=== PATIENT | male | born 1950 | race Caucasian/White ===

== ENCOUNTER 2019-10-19 07:22 | Outpatient (RCR) | payer MEDICARE, SELFPAY ==
--- NOTE | 2019-08-15 13:03 | WPDWOUNDNOTE ---
Wound Care Note Date/Time: 08/15/19 13:03 History: This patient is a pleasant 68-year-old white male who states that approximately over 1 month ago he was climbing up on a 3 step, step ladder and slipped as he tried to go up the 1st step. As he slipped he banged the lateral part of his right lower leg on the ladder. He is on Coumadin and his last INR which was done after this injury was 3.8. He bruised significantly on this lateral right lower leg just above the level of the ankle and subsequently began to have some unusual drainage come from the area of the injury. He went to the emergency room here at [place] around July 18 and had it evaluated. At that time his INR was 3.8 and he was told to stop his Coumadin for 1 day and then resume it at 5 mg /day. He had his INR rechecked and was 2.0 on 08/07/2019. Until treated here 2 weeks ago he had had further skin breakdown and some drainage from his right lower leg. Because he has been on Bactrim for previous cellulitis of his left lower extremity, which often swells, he has been on this as an antibiotic throughout this time period until about 2 weeks ago. 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 He does not remember specifically which side these have been on. He thinks however, they have mainly been on the left lower extremity. Wound history: The patient now has a right lower extremity wound from an infected hematoma following trauma to his right lower leg over 1 month ago. He is on anticoagulation therapy for history of DVTs. His last INR was 2.0 as mentioned above. He has now been seen in the wound clinic for this non-healing right lower extremity hematoma for the past 2 weeks after an ER visit at [facility] around July 19, 2019 when he was initially evaluated by the ED physician. He has been having dressing changes performed by his with silver gel, mepilex transfer, and overlying gauze. Last week at his appointment with Dr. Solis, they had decided to prior auth a wound VAC for possible wound VAC therapy. The patient has had no new complaints or changes from the wound since then. His feels that the wound looks better today. The swelling reportedly has decreased some and they have not reported any new drainage from the wound. The newer area of skin breadown seen on the last visit more cephalad to the large open wound, appears about the same and does not have an opening to the tunneling on my assessment. This still appears to be a full skin thickness loss at this site. Previous culture was taken and had showed growth of staph aureus resistant to Bactrim, tetracyclines, levaquin, and Cipro, with sensitivity only to vancomycin and clindamycin. No further antibiotics have been prescribed after cultures resulted due to no signs of infection on the previous assessment. Today, still no signs of infection on my exam. No new areas of skin breakdown. Wound approximation: No Wound width: Large wound: 3.4 cm Smaller wound more cephalad: 1.3 cm Wound length: Large wound: 6 cm Smaller wound more cephalad: 0.7 cm Wound depth: Large wound: 1.0 cm Smaller wound more cephalad: 0.2 cm Drainage: Some serosanguineous drainage. No purulent drainage noted and no expressible blood clots as there was on his last assessment. Surrounding tissue appearance: Healthy with shiny pink thin skin. No significant erythema and the swelling overall seems improved. Tunnelin.2 cm in the cephalad direction at 12 o'clock and another small area of tunneling 1.2 cm tunneling distally towards the foot at 6 o'clock. Percentage granulation tissue: 80% Treatment/Procedures: The wound was cleansed thoroughly and assessed. After his last evaluation last week, the wound care nurses worked on getting approval for a Wound VAC if felt appropriate
--- NOTE | 2019-08-18 17:14 | WPDWOUNDNOTE ---
Wound Care Note Date/Time: 08/18/19 17:14 (Late entry for a noon visit) History: [facility] [address] [place] [address] Wound Care Progress Note Signed Patient: Albin Nolan WMR#: [id number] : 3Acct:[id number] Age/Sex: 68 / MADM Date: 08/15/19 [facility]: Walt Solis MD cc: ~ Wound Care Note Date/Time: 08/15/19 13:03 History: This patient is a pleasant 68-year-old white male who states that approximately over 1 month ago he was climbing up on a 3 rung, step ladder and slipped as he tried to go up the 1st step. As he slipped he banged the lateral part of his right lower leg on the ladder. He is on Coumadin and his last INR which was done after this injury was 3.8. He bruised significantly on this lateral right lower leg just above the level of the ankle and subsequently began to have some unusual drainage come from the area of the injury. He went to the emergency room here at [place] around July 18 and had it evaluated. At that time his INR was 3.8 and he was told to stop his Coumadin for 1 day and then resume it at 5 mg /day. He had his INR rechecked and was 2.0 on 08/07/2019. Until treated here 2 weeks ago he had had further skin breakdown and some drainage from his right lower leg. Because he has been on Bactrim for previous cellulitis of his left lower extremity, which often swells, he has been on this as an antibiotic throughout this time period until about 2 weeks ago. 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 He does not remember specifically which side these have been on. He thinks however, they have mainly been on the left lower extremity. Wound history: The patient now has a right lower extremity wound from an infected hematoma following trauma to his right lower leg over 1 month ago. He is on anticoagulation therapy for history of DVTs. His last INR was 2.0 as mentioned above. He has now been seen in the wound clinic for this non-healing right lower extremity hematoma for the past 2 weeks after an ER visit at [facility] around July 19, 2019 when he was initially evaluated by the ED physician. He has been having dressing changes with use of a wound VAC since his last visit here at the clinic with an MD or an RN-N P The patient has had no new complaints or changes from the wound since then. back is not cause a lot of pain and they are able to pull 1 of his looser Napoleon hose over the system. His feels that the wound looks better today. The swelling reportedly has decreased some and they have not reported any new drainage from the wound. Not significant blood coming into the drainage. The newer smaller area of skin breadown seen two visits ago, more cephalad to the large open wound, appears about the same. This still appears to be a full skin thickness loss at this site. Previous culture was taken and had showed growth of staph aureus resistant to Bactrim, tetracyclines, levaquin, and Cipro, with sensitivity only to vancomycin and clindamycin. No further antibiotics have been prescribed after cultures resulted due to no signs of infection on the previous assessment. Today, still no signs of infection. No new areas of skin breakdown Wound approximation: No Wound width: 3.2 cm Wound length: 5.7cm Wound depth: 0.8 cm Drainage: Minimal, see nursing chart for drainage within wound VAC canister. Surrounding tissue appearance: Healthy appearing skin Tunneling: Some posterior lateral tunneling in a cephalad direction. Also, Air is some tunneling inferiorly from the small wound that is above the larger which is measured above. We are trying to pack these from each end and let it heal from center toward each wound. Treatment/Procedures: We used jesi
--- NOTE | 2019-09-05 21:36 | WPDWOUNDNOTE ---
Wound Care Note Date/Time: 08/31/19 21:36 (Late entry for 08/31/2019 noon visit) History: This patient is a pleasant 68-year-old white male who states that approximately over 2 months ago he was climbing up on a 3 step, step ladder and slipped as he tried to go up the 1st step. As he slipped he banged the lateral part of his right lower leg on the ladder. He is on Coumadin and his last INR which was done after this injury was 3.8. He bruised significantly on this lateral right lower leg just above the level of the ankle and subsequently began to have some unusual drainage come from the area of the injury. He went to the emergency room here at [place] around July 18 and had it evaluated. At that time his INR was 3.8 and he was told to stop his Coumadin for 1 day and then resume it at 5 mg /day. He had his INR rechecked and was 2.0 on 08/07/2019. Until treated here 2 weeks ago he had had further skin breakdown and some drainage from his right lower leg. Because he has been on Bactrim for previous cellulitis of his left lower extremity, which often swells, he has been on this as an antibiotic throughout this time period until about 2 weeks ago. 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 He does not remember specifically which side these have been on. He thinks however, they have mainly been on the left lower extremity Wound history: The patient now has a right lower extremity wound from an infected hematoma following trauma to his right lower leg over 1 month ago. He is on anticoagulation therapy for history of DVTs. His last INR was 2.0 as mentioned above. He has now been seen in the wound clinic for this non-healing right lower extremity hematoma for the past 2 weeks after an ER visit at [facility] around July 19, 2019 when he was initially evaluated by the ED physician. He has been having dressing changes with use of a wound VAC since his last visit here at the clinic with an MD or an RN-N P The patient has had no new complaints or changes from the wound since then. back is not cause a lot of pain and they are able to pull 1 of his looser Napoleon hose over the system. His feels that the wound looks better today. The swelling reportedly has decreased some and they have not reported any new drainage from the wound. Not significant blood coming into the drainage. The newer smaller area of skin breadown seen two visits ago, more cephalad to the large open wound, appears about the same. This still appears to be a full skin thickness loss at this site. Previous culture was taken and had showed growth of staph aureus resistant to Bactrim, tetracyclines, levaquin, and Cipro, with sensitivity only to vancomycin and clindamycin. No further antibiotics have been prescribed after cultures resulted due to no signs of infection on the previous assessment. Today, still no signs of infection. No new areas of skin breakdown Wound approximation: No Wound width: 2.4 cm Wound length: 5.4 cm Wound depth: 0.4 cm Drainage: serosanguineous without any purulence Surrounding tissue appearance: normal appearing skin. There is signs of re-epithelialization on the edges of the wound. Tunneling: Some tunneling of the posterior superior and the large wound which tunnels toward the smaller wound on the lateral side his leg. There is also a small amount of tunneling from small wound deep. After wound VAC therapy these appear to be sealing in.. Percentage granulation tissue: 95 % Treatment/Procedures: Stop wound VAC changes and wound VAC therapy. Wound is pallavi and granulation tissue is filling in the spaces. Will now begin using silver rope some silver gel a Primix dressing Dressings: See nursing notes: wound VAC will be put on hold and we will try new d
--- NOTE | 2019-09-13 13:19 | WPDWOUNDNOTE ---
Wound Care Note Date/Time: 09/13/19 13:19 History: This patient is a pleasant 68-year-old white male who states that approximately over 2 months ago he was climbing up on a 3 step, step ladder and slipped as he tried to go up the 1st step. As he slipped he banged the lateral part of his right lower leg on the ladder. He is on Coumadin and his last INR which was done after this injury was 3.8. He bruised significantly on this lateral right lower leg just above the level of the ankle and subsequently began to have some unusual drainage come from the area of the injury. He went to the emergency room here at [place] around July 18 and had it evaluated. At that time his INR was 3.8 and he was told to stop his Coumadin for 1 day and then resume it at 5 mg /day. He had his INR rechecked and it was 2.0 on 08/07/2019. Until treated here 4 weeks ago he had had further skin breakdown and some drainage from his right lower leg. Because he has been on Bactrim for previous cellulitis of his left lower extremity, which often swells, he has been on this as an antibiotic throughout this time period until about 2 weeks ago. 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 upper extremity. He does not remember specifically which side these have been on. He thinks however, they have mainly been on the left lower extremity Wound history: Wound history: The patient now has a right lower extremity wound from an infected hematoma following trauma to his right lower leg over 1 month ago. He is on anticoagulation therapy for history of DVTs. His last INR was 2.0 as mentioned above. He has now been seen in the wound clinic for this non-healing right lower extremity hematoma for the past 2 weeks after an ER visit at [facility] around July 19, 2019 when he was initially evaluated by the ED physician. He has been having dressing changes with use of a wound VAC since his last visit here at the clinic with an MD or an RN-N P. The patient has had no new complaints or changes from the wound since then. The wound vac is not causing a lot of pain and they are able to pull 1 of his looser Napoleon hose over the system. His feels that the wound looks better today. The swelling reportedly has decreased some and they have not reported any new drainage from the wound. No significant blood coming into the drainage. The newer smaller area of skin breadown seen two visits ago, more cephalad to the large open wound, appears about the same. This still appears to be a full skin thickness loss at this site. Previous culture was taken and had showed growth of staph aureus resistant to Bactrim, tetracyclines, levaquin, and Cipro, with sensitivity only to vancomycin and clindamycin. No further antibiotics have been prescribed after cultures resulted due to no signs of infection on the previous assessment. Today, still no signs of infection. No new areas of skin breakdown Wound approximation: No (Upper wound is flat with the skin. Lower larger is tunneling slightly ceph) Wound width: 1.5cm Wound length: 4 cm Wound depth: 0.3cm Drainage: Serosanguineous, minimal Surrounding tissue appearance: Shinny clean epidermis surrounding both open sites. Tunneling: Yes : The lower larger wound tunnel somewhat cephalad for about 2 cm. Silver nitrate used within this tunnel and along some of the edge of the wound. Percentage granulation tissue: 100% Treatment/Procedures: Will plan to use Judi within the tunnel of the lower wound and also on the depths of the lower wound. Covering it with Mepilex and patient wearing his compression hose over this. Changing the dressing once a day. Dressings: Judi, Mepilex, compression hose over all the dressings.
--- NOTE | 2019-09-27 20:29 | WPDWOUNDNOTE ---
Wound Care Note Date/Time: 09/27/19 11:29 Pt seen in the [place] wound clinic. History: This patient is a pleasant 68-year-old white male who states that approximately over 4 months ago he was climbing up on a 3 step, step ladder and slipped as he tried to go up the 1st step. As he slipped he banged the lateral part of his right lower leg on the ladder. He is on Coumadin and his last INR which was done after this injury was 3.8. He bruised significantly on this lateral right lower leg just above the level of the ankle and subsequently began to have some unusual drainage come from the area of the injury. He went to the emergency room here at [place] around July 18 and had it evaluated. At that time his INR was 3.8 and he was told to stop his Coumadin for 1 day and then resume it at 5 mg /day. He had his INR rechecked and it was 2.8 on 08/07/2019. Until treated here 6 weeks ago he had had further skin breakdown and some drainage from his right lower leg. Because he has been on Bactrim for previous cellulitis of his left lower extremity, which often swells, he has been on this as an antibiotic throughout this time period until about 4 weeks ago. 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 upper extremity. He does not remember specifically which side these have been on. He thinks however, they have mainly been on the left lower extremi Wound history: This patient is a pleasant 68-year-old white male who states that approximately over 4 months ago he was climbing up on a 3 step, step ladder and slipped as he tried to go up the 1st step. As he slipped he banged the lateral part of his right lower leg on the ladder. He is on Coumadin and his last INR which was done after this injury was 3.8. He bruised significantly on this lateral right lower leg just above the level of the ankle and subsequently began to have some unusual drainage come from the area of the injury. He went to the emergency room here at [place] around July 18 and had it evaluated. At that time his INR was 3.8 and he was told to stop his Coumadin for 1 day and then resume it at 5 mg /day. He had his INR rechecked and it was 2.0 on 08/07/2019. Most recently this was down to 1.6 and his dose of coumadin has been increased by Dr. Singh. Until treated here 6 weeks ago he had had further skin breakdown and some drainage from his right lower leg. Because he has been on Bactrim for previous cellulitis of his left lower extremity, which often swells, he has been on this as an antibiotic throughout this time period until about 4 weeks ago. 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 upper extremity. He does not remember specifically which side these have been on. He thinks however, they have mainly been on the left lower extremity. His wound has been healing in nicely and re-epithelializing on the edges. There has been no signs of infection. Wound approximation: No Wound width: 1 cm Wound length: 3 cm Wound depth: 0.2 cm Drainage: minimal Surrounding tissue appearance: healthy skin that is pink. The small satillite lesion is also granulating in slowly and is smaller. Tunneling: only 0.5 to 0.2 cm in a cephalad direction on both wounds Percentage granulation tissue: 100 % Treatment/Procedures: Continue Judi and cover with a Mipilex or kerlix roll Dressings: as above Wearing his compression stockings Assessment and Plan Assessment and plan (1) Traumatic hematoma of right lower leg: Onset Date: ~07/2019 Qualifiers: Encounter type: subsequ
--- NOTE | 2019-10-19 12:25 | WPDWOUNDNOTE ---
Wound Care Note Date/Time: 10/19/19 12:25 History: This patient is a pleasant 68-year-old white male who states that approximately over 4 months ago he was climbing up on a 3 step, step ladder and slipped as he tried to go up the 1st step. As he slipped he banged the lateral part of his right lower leg on the ladder. He is on Coumadin and his last INR which was done after this injury was 3.8. He bruised significantly on this lateral right lower leg just above the level of the ankle and subsequently began to have some unusual drainage come from the area of the injury. He went to the emergency room here at [place] around July 18 and had it evaluated. At that time his INR was 3.8 and he was told to stop his Coumadin for 1 day and then resume it at 5 mg /day. He had his INR rechecked and it was 2.8 on 08/07/2019. Until treated here 10 weeks ago he had had further skin breakdown and some drainage from his right lower leg. Because he has been on Bactrim for previous cellulitis of his left lower extremity, which often swells, he has been on this as an antibiotic throughout this time period until about 8 weeks ago. 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 upper extremity. He does not remember specifically which side these have been on. He thinks however, they have mainly been on the left lower extremity. Wound history: This patient is a pleasant 68-year-old white male who states that approximately over 4 months ago he was climbing up on a 3 step, step ladder and slipped as he tried to go up the 1st step. As he slipped he banged the lateral part of his right lower leg on the ladder. He is on Coumadin and his last INR which was done after this injury was 3.8. He bruised significantly on this lateral right lower leg just above the level of the ankle and subsequently began to have some unusual drainage come from the area of the injury. He went to the emergency room here at [place] around July 18 and had it evaluated. At that time his INR was 3.8 and he was told to stop his Coumadin for 1 day and then resume it at 5 mg /day. He had his INR rechecked and it was 2.0 on 08/07/2019. Most recently this was down to 1.6 and his dose of coumadin has been increased by Dr. Singh. Until treated here 10 weeks ago he had had further skin breakdown and some drainage from his right lower leg. Because he has been on Bactrim for previous cellulitis of his left lower extremity, which often swells, he has been on this as an antibiotic throughout this time period until about 8weeks ago. 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 upper extremity. He does not remember specifically which side these have been on. He thinks however, they have mainly been on the left lower extremity. patient has been treated initially with wound VAC therapy and then careful wound care with Mepilex transfer and coverage with gauze. He has some weeping today because he has not been wearing his Napoleon hose over the dressings. Otherwise his wound has been healing in nicely and re-epithelializing on the edges. Wound width: Patient has 3 small very superficial less than 0.5 cm breakdown sites that we put clear fluid in the general vicinity of where his wound was. It is otherwise completely healed. Wound length: Patient has 3 small very superficial less than 0.5 cm breakdown sites that we put clear fluid in the general vicinity of where his wound was. It is otherwise completely healed. Wound depth: 0 mm Drainage: Minimal serous fluid Surrounding tissue appearance: the site w
== END 2019-11-10 12:29 | disposition home or self-care (01) ==
LOC: ANHWOC 07:22
PROVIDERS: PCP Internal Medicine; Visit Provider Surgery
DX: S81.801D Unspecified open wound, right lower leg, subsequent encounter (principal); Z79.01 Long term (current) use of anticoagulants
CPT/HCPCS: 92593; 97605; 99212; 99214; A9270; G0463

== ENCOUNTER 2019-11-20 11:30 | Outpatient (RCR) | payer MEDICARE, SELFPAY ==
[2019-09-04 13:43] LABS: INR 1.6; Prothrombin Time 18.5 Seconds (11.1-14.7)
[2019-09-22 12:13] LABS: INR 1.7; Prothrombin Time 19.1 Seconds (11.1-14.7)
[2019-10-13 14:27] LABS: INR 2.2; Prothrombin Time 23.9 Seconds (11.1-14.7)
[2019-11-20 13:18] LABS: Hematocrit 43.3 % (42.0-52.0); Mean Corpuscular HGB Conc 32.3 g/dl (32-36); Mean Corpuscular Hemoglobin 27.9 pg (26-34); Mean Corpuscular Volume 86.3 fl (80-100); Mean Platelet Volume 9.7 fl (7.4-10.4); Platelet Count Result 285 k/mm3 (150-375); Red Blood Count 5.02 M/mm3 (4.6-6.20); Red Cell Distribution Width 13.5 % (11.5-14.5); White Blood Count 6.9 K/mm3 (4.5-10.0)
[2019-11-20 13:37] LABS: Alanine Aminotransferase 18 U/L (4-50); Albumin Level 4.3 g/dL (3.5-5.1); Alkaline Phosphatase 65 U/L (38-126); Aspartate Amino Transferase 25 U/L (17-59); Bilirubin,Total 0.4 mg/dL (0.2-1.3); Blood Urea Nitrogen 22 mg/dL (9-20); Calcium 9.4 mg/dL (8.4-10.2); Carbon Dioxide 28 mmol/L (22-30); Chloride 97 mmol/L (98-107); Cholesterol 130 mg/dL (0-200); Estimated Glomerular Filt Rate 55; Glucose 95 mg/dL (75-110); HDL Direct 34 mg/dL; Potassium 3.4 mmol/L (3.4-5.0); Sodium 140 mmol/L (137-145); Triglycerides 172 mg/dL (<150); Uric Acid 4.4 mg/dL (3.5-8.5)
[2019-11-20 13:38] LABS: INR 2.9; Prothrombin Time 29.4 Seconds (11.1-14.7)
[2019-11-20 13:48] LABS: LDL Cholesterol Direct 74 mg/dL
[2019-11-20 14:02] LABS: Prostate Specific Antigen 1.2 ng/mL (< OR = 4.0)
== END 2019-12-03 23:59 | disposition home or self-care (01) ==
LOC: ANHWCLAB 11:30
PROVIDERS: PCP Internal Medicine; Visit Provider Internal Medicine
DX: Z51.81 Encounter for therapeutic drug level monitoring (principal); D64.9 Anemia, unspecified; I10 Essential (primary) hypertension; E78.2 Mixed hyperlipidemia; M10.9 Gout, unspecified; Z12.5 Encounter for screening for malignant neoplasm of prostate; Z79.899 Other long term (current) drug therapy; Z79.01 Long term (current) use of anticoagulants
CPT/HCPCS: 36415; 80053; 80061; 84153; 84550; 85027; 85610; G0103

== ENCOUNTER 2020-04-24 08:07 | Outpatient (CLI) | payer MEDICARE, SELFPAY ==
[2020-04-24 08:47] LABS: INR 3.4; Prothrombin Time 33.5 Seconds (11.1-14.7)
== END 2020-04-24 08:08 | disposition home or self-care (01) ==
PROVIDERS: Visit Provider Dentist
DX: Z79.01 Long term (current) use of anticoagulants (principal)
CPT/HCPCS: 36415; 85610

== ENCOUNTER 2020-05-20 07:43 | Outpatient (CLI) | payer MEDICARE, SELFPAY ==
[2020-05-20 08:09] LABS: Hematocrit 36.8 % (42.0-52.0); Hemoglobin 12.3 g/dL (14.0-18.0)
[2020-05-20 08:23] LABS: Alanine Aminotransferase 14 U/L (4-50); Albumin Level 4.1 g/dL (3.5-5.1); Alkaline Phosphatase 55 U/L (38-126); Anion Gap 8 mmol/L (8-16); Aspartate Amino Transferase 25 U/L (17-59); Bilirubin,Total 0.3 mg/dL (0.2-1.3); Blood Urea Nitrogen 22 mg/dL (9-20); Calcium 8.6 mg/dL (8.4-10.2); Carbon Dioxide 26 mmol/L (22-30); Chloride 103 mmol/L (98-107); Cholesterol 119 mg/dL (0-200); Estimated Glomerular Filt Rate 43; Glucose 109 mg/dL (75-110); HDL Direct 27 mg/dL; Potassium 3.8 mmol/L (3.4-5.0); Sodium 137 mmol/L (137-145); Triglycerides 137 mg/dL (<150)
[2020-05-20 08:34] LABS: LDL Cholesterol Direct 66 mg/dL
[2020-05-20 08:57] LABS: Iron 71 ug/dL (49-181)
[2020-05-20 09:06] LABS: Percent Iron Saturation 22 % (20-50)
== END 2020-05-20 07:44 | disposition home or self-care (01) ==
LOC: ANHLAB 07:45
PROVIDERS: Visit Provider Internal Medicine
DX: E78.5 Hyperlipidemia, unspecified (principal); I10 Essential (primary) hypertension; Z79.899 Other long term (current) drug therapy; D64.9 Anemia, unspecified
CPT/HCPCS: 36415; 80053; 80061; 83540; 83550; 85014; 85018

== ENCOUNTER 2020-05-30 09:49 | Outpatient (CLI) | payer MEDICARE, SELFPAY ==
--- NOTE | ~2020-05-30 | CT_ITS ---
EXAMINATION: CT sinus wo con DATE: 05/30/2020 10:08 INDICATION: Chronic sinusitis, unspecified TECHNIQUE: Computed tomography (CT) of the paranasal sinuses was performed without intravenous contra st. The dose-length product (DLP) was 273.54 mGy-cm. Iterative reconstruction was used. COMPARISON: 01/02/2015 FINDINGS: There is normal development and pneumatization of the paranasal sinuses. There is mild muco chey thickening of the frontal sinuses and inferiorly in the maxillary sinuses. Sphenoid and ethmoidal sinuses are clear. There are 5 mm of rightward deviation of the nasal septum. The bilateral ostiomea cherie complexes are patent. Visualized soft tissues are unremarkable. IMPRESSION: 1. Minimal mucosal thickening of the frontal and maxillary sinuses. Reviewed, dictated and finalized at location A.
== END 2020-05-30 09:50 | disposition home or self-care (01) ==
PROVIDERS: Visit Provider Nurse Practitioner
DX: J32.9 Chronic sinusitis, unspecified (principal); R53.83 Other fatigue
CPT/HCPCS: 36415; 70486; 84443; 85610

== ENCOUNTER 2020-07-09 08:12 | Outpatient (CLI) | payer MEDICARE, SELFPAY ==
--- NOTE | 2020-07-24 22:11 | WPDHOMESLEEP ---
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 He occasionally snores and occasionally it is loud enough that others complain about it. He rarely awakens at night with heartburn belching or coughing. He rarely awakens from sleep feeling short of breath. He frequently has trouble sleep with the coal, occasionally wakes up gasping for breath at night, occasionally his breathing problems at night observed by others. He rarely sweats excessively at night and rarely notices his heart pounding or beating irregularly at night. He occasionally falls asleep during the day rarely involuntarily never while driving or during physical effort. He does not have loss of muscle tone was strong emotion. He rarely has daytime difficulties due to excessive sleepiness. He is currently retired. He does not feel paralyzed on waking or falling asleep and does not have vivid dreamlike scenes upon awakening or falling asleep. He is not afraid to go to sleep. He rarely has nightmares, rarely remembers his dreams. He occasionally has racing thoughts. He rarely feels sad or depressed. He occasionally has anxiety. He rarely has muscular tension, rarely notices parts of his body jerking any rarely kicks at night. He occasionally has crawling and aching feelings in his legs and occasionally has leg pain at night. He does not have morning jaw pain. He occasionally grinds his teeth during sleep. He frequently is bothered by pain during the day. He occasionally is awakened by pain during the night. Frequently wakes up feeling stiff in the morning with sore achy muscles and pain in the neck and spine. He has fatigue, memory problems, and he takes sedatives. Normal bedtime is 11:00 p.m. falling asleep within 30 minutes rule in back and forth during the night. He may wake up early in the morning before his desired wake time of 5:00 a.m.. We can schedule is the same although he may go to bed 1 hour later. He does take naps. Short naps are not refreshing. He feels better in the afternoon and in the morning. [facility], [facility] Past Medical History Medical History (Updated 07/24/20 @ 22:25 by Karyna Brumfield MD) Anemia Chronic sinusitis Essential (primary) hypertension Fatigue Gastroesophageal reflux disease Gout without tophus History of DVT of lower extremity Mixed hyperlipidemia Obstructive sleep apnea (~2002) CASIMIRO on CPAP Primary insomnia Primary osteoarthritis of left knee Family History Family History Sibling Family history of diabetes mellitus in first degree relative Mother Asthma Family history of diabetes mellitus in first degree relative Father Malignant neoplasm of prostate Other Diabetes mellitus Family history of arthritis Family history of malignant neoplasm Hypertension Social History Social History Smoking status: Former smoker Smoking end date: 10/11/07 Alcohol intake: current Medications Afrin nasal decongestant p.r.n. Atorvastatin 20 mg a day aspirin 81 mg B12 1000 mcg once daily ferrous sulfate 325 mg 1 tablet b.i.d. Flonase Allergy Relief as needed fish oil a 1000 mg twice folic acid 800 mcg once daily furosemide 80 mg a day multivitamin 1 daily potassium chloride 1 daily pantoprazole 40 mg a day trazodone 150 mg 2 at bedtime topiramate 25 mg once a day Uloric 40 mg daily vitamin-C 500 mg daily vitamin D supplement 400 IU daily Sleep Procedure This test was performed using 4 channel monitoring includin
[2020-07-24 22:28] VITALS: BMI 38.0
== END 2020-07-09 08:13 | disposition home or self-care (01) ==
LOC: ANHCSM 08:12
PROVIDERS: Visit Provider Nurse Practitioner
DX: F51.01 Primary insomnia (principal)
CPT/HCPCS: 95806

== ENCOUNTER 2020-07-16 08:19 | Outpatient (RCR) | payer MEDICARE, SELFPAY ==
[2020-05-30 11:07] LABS: INR 2.4; Prothrombin Time 25.9 Seconds (11.1-14.7)
[2020-07-16 08:51] LABS: Prothrombin Time 22.6 Seconds (11.1-14.7)
== END 2020-08-28 23:59 | disposition home or self-care (01) ==
LOC: ANHLAB 08:19
PROVIDERS: Visit Provider Internal Medicine
DX: Z51.81 Encounter for therapeutic drug level monitoring (principal); Z79.01 Long term (current) use of anticoagulants
CPT/HCPCS: 36415; 85610

== ENCOUNTER 2020-11-21 10:28 | Outpatient (RCR) | payer MEDICARE, SELFPAY ==
[2020-09-26 12:27] LABS: INR 2.4; Prothrombin Time 27.1 Seconds (11.1-14.7)
[2020-11-21 11:21] LABS: INR 2.9; Prothrombin Time 30.9 Seconds (11.1-14.7)
== END 2020-12-25 23:59 | disposition home or self-care (01) ==
LOC: ANHLAB 10:28
PROVIDERS: PCP Internal Medicine; Visit Provider Internal Medicine
DX: Z51.81 Encounter for therapeutic drug level monitoring (principal); Z79.01 Long term (current) use of anticoagulants
CPT/HCPCS: 36415; 85610

== ENCOUNTER 2020-11-21 10:31 | Outpatient (CLI) | payer MEDICARE, SELFPAY ==
[2020-11-21 11:12] LABS: Basophils Percent Auto 0.4 % (0.2-1.2); Eosinophils Absolute Auto 0.1 K/mm3 (0-0.3); Eosinophils Percent Auto 2.1 % (0-4.4); Hematocrit 39.7 % (42.0-52.0); Hemoglobin 13.2 g/dL (14.0-18.0); Immature Granulocyte Absolute 0.02 K/mm3 (0.00-0.031); Immature Granulocyte Percent A 0.3 % (0-0.5); Lymphocytes Absolute Auto 1.57 K/mm3 (0.9-3.2); Lymphocytes Percent Auto 23.4 % (18.3-44.2); Mean Corpuscular HGB Conc 33.2 g/dl (32-36); Mean Corpuscular Hemoglobin 29.9 pg (26-34); Mean Corpuscular Volume 89.8 fl (80-100); Mean Platelet Volume 9.6 fl (7.4-10.4); Monocytes Absolute Auto 0.5 K/mm3 (0.1-0.6); Monocytes Percent Auto 7.3 % (2.6-8.5); Neutrophils Absolute Auto 4.5 K/mm3 (1.3-6.7); Neutrophils Percent Auto 66.5 % (45.5-73.1); Platelet Count Result 260 k/mm3 (150-375); Red Blood Count 4.42 M/mm3 (4.6-6.20); Red Cell Distribution Width 13.3 % (11.5-14.5); White Blood Count 6.7 K/mm3 (4.5-10.0)
[2020-11-21 11:25] LABS: Alanine Aminotransferase 22 U/L (4-50); Albumin Level 4.5 g/dL (3.5-5.1); Alkaline Phosphatase 49 U/L (38-126); Anion Gap 7 mmol/L (8-16); Aspartate Amino Transferase 33 U/L (17-59); Bilirubin,Total 0.5 mg/dL (0.2-1.3); Blood Urea Nitrogen 19 mg/dL (9-20); Calcium 9.1 mg/dL (8.4-10.2); Carbon Dioxide 31 mmol/L (22-30); Chloride 102 mmol/L (98-107); Cholesterol 146 mg/dL (0-200); Estimated Glomerular Filt Rate 43; Glucose 109 mg/dL (75-110); HDL Direct 34 mg/dL; Potassium 3.4 mmol/L (3.4-5.0); Sodium 140 mmol/L (137-145); Triglycerides 161 mg/dL (<150); Uric Acid 5.1 mg/dL (3.5-8.5)
[2020-11-21 11:36] LABS: LDL Cholesterol Direct 80 mg/dL
[2020-11-21 11:55] LABS: Prostate Specific Antigen 2.2 ng/mL (< OR = 4.0)
[2020-11-21 12:08] LABS: Iron 102 ug/dL (49-181)
[2020-11-21 12:18] LABS: Percent Iron Saturation 29 % (20-50)
== END 2020-11-21 10:32 | disposition home or self-care (01) ==
LOC: ANHLAB 10:33
PROVIDERS: PCP Internal Medicine; Visit Provider Nurse Practitioner
DX: M10.9 Gout, unspecified (principal); D64.9 Anemia, unspecified; E53.8 Deficiency of other specified B group vitamins; E78.2 Mixed hyperlipidemia; Z12.5 Encounter for screening for malignant neoplasm of prostate
CPT/HCPCS: 36415; 80053; 80061; 82607; 83540; 83550; 84153; 84550; 85025; G0103

== ENCOUNTER 2021-03-07 09:25 | Outpatient (RCR) | payer MEDICARE, SELFPAY ==
[2021-01-07 10:13] LABS: INR 2.9
[2021-03-07 10:00] LABS: Prothrombin Time 31.3 Seconds (11.1-14.7)
== END 2021-04-07 23:59 | disposition home or self-care (01) ==
LOC: ANHLAB 09:25
PROVIDERS: PCP Internal Medicine; Visit Provider Nurse Practitioner
DX: Z51.81 Encounter for therapeutic drug level monitoring (principal); I82.409 Acute embolism and thrombosis of unspecified deep veins of unspecified lower extremity; Z79.01 Long term (current) use of anticoagulants
CPT/HCPCS: 36415; 85610

== ENCOUNTER 2021-04-10 14:26 | Outpatient (CLI) | payer MEDICARE, SELFPAY ==
--- NOTE | ~2021-04-10 | CT_ITS ---
EXAMINATION: CT lung screening EXAM DATE: 04/10/2021 15:17 INDICATION: Z87.891 - Personal history of nicotine dependence. Shortness of breath. TECHNIQUE: Spiral low dose CT of the chest without contrast. Axial, coronal and sagittal images were reviewed. The dose-length product (DLP) for this examination was 513.77 mGy-cm. The exposure was t ailored according to patient size (auto mA exposure control), and iterative reconstruction (ASIR) was used as additional dose reduction technique. Comparison is made to prior examination from 01/30/2010. Correlation was made with abdomen pelvis CT 01/15/2017. FINDINGS: Calcified right lower lobe granuloma. The lungs are otherwise clear. Tracheobronchial tr ee is patent. There is no mediastinal, hilar or axillary lymphadenopathy. There are no pleural or pericardial effusions. There is no pneumothorax. Heart normal in size. No evidence of coronary arterial calcification. Small right renal lesions are probably cysts, hemorrhagic cysts correlating with prior CT abdomen. Probable 5 mm left superior calyceal stone. Mild scattered colonic diverticulo sis. There is mild to moderate thoracic spondylosis without osteoblastic or osteolytic lesions ident ified. IMPRESSION: Lung-RADS category 1, negative (<1%chance of malignancy); recommend continued LDCT screen ing in 1 year. > Reviewed, dictated and finalized at location A. IMPRESSION: Lung-RADS category 1, negative (<1%chance of malignancy); recommend continued LDCT screening in 1 year. >
== END 2021-04-10 14:27 | disposition home or self-care (01) ==
PROVIDERS: PCP Internal Medicine; Visit Provider Nurse Practitioner Family
DX: Z12.2 Encounter for screening for malignant neoplasm of respiratory organs (principal); Z87.891 Personal history of nicotine dependence
CPT/HCPCS: 36415; 71271; 85610

== ENCOUNTER 2021-05-28 07:58 | Outpatient (RCR) | payer MEDICARE, SELFPAY ==
[2021-04-10 15:33] LABS: INR 2.3; Prothrombin Time 24.8 Seconds (11.1-14.7)
[2021-05-28 09:08] LABS: INR 2.6; Prothrombin Time 27.2 Seconds (11.1-14.7)
== END 2021-07-09 23:59 | disposition home or self-care (01) ==
LOC: ANHLAB 07:58
PROVIDERS: PCP Internal Medicine; Visit Provider Nurse Practitioner
DX: Z51.81 Encounter for therapeutic drug level monitoring (principal); I82.409 Acute embolism and thrombosis of unspecified deep veins of unspecified lower extremity; Z79.01 Long term (current) use of anticoagulants
CPT/HCPCS: 36415; 85610

== ENCOUNTER 2021-05-28 08:00 | Outpatient (CLI) | payer MEDICARE, SELFPAY ==
[2021-05-28 09:09] LABS: Alanine Aminotransferase 18 U/L (4-50); Albumin Level 4.3 g/dL (3.5-5.1); Alkaline Phosphatase 52 U/L (38-126); Anion Gap 8 mmol/L (8-16); Aspartate Amino Transferase 27 U/L (17-59); Bilirubin,Total 0.5 mg/dL (0.2-1.3); Blood Urea Nitrogen 18 mg/dL (9-20); Calcium 9.3 mg/dL (8.4-10.2); Carbon Dioxide 26 mmol/L (22-30); Chloride 106 mmol/L (98-107); Cholesterol 140 mg/dL (0-200); Estimated Glomerular Filt Rate 43; Glucose 99 mg/dL (65-110); HDL Direct 35 mg/dL; Potassium 3.6 mmol/L (3.4-5.0); Sodium 140 mmol/L (137-145); Triglycerides 98 mg/dL (<150)
[2021-05-28 09:20] LABS: LDL Cholesterol Direct 67 mg/dL
== END 2021-05-28 08:01 | disposition home or self-care (01) ==
PROVIDERS: PCP Internal Medicine; Visit Provider Nurse Practitioner
DX: E78.5 Hyperlipidemia, unspecified (principal)
CPT/HCPCS: 36415; 80053; 80061; 85610

== ENCOUNTER 2021-06-02 08:36 | Outpatient (CLI) | payer MEDICARE, SELFPAY ==
[2021-06-02 09:26] LABS: Basophils Absolute Auto 0.1 K/mm3 (0.0-0.1); Basophils Percent Auto 0.7 % (0.2-1.2); Eosinophils Absolute Auto 0.2 K/mm3 (0-0.3); Eosinophils Percent Auto 2.9 % (0-4.4); Hematocrit 39.8 % (42.0-52.0); Hemoglobin 12.8 g/dL (14.0-18.0); Immature Granulocyte Absolute 0.01 K/mm3 (0.00-0.031); Immature Granulocyte Percent A 0.1 % (0-0.5); Lymphocytes Percent Auto 22.9 % (18.3-44.2); Mean Corpuscular HGB Conc 32.2 g/dl (32-36); Mean Corpuscular Hemoglobin 29.5 pg (26-34); Mean Corpuscular Volume 91.7 fl (80-100); Mean Platelet Volume 9.9 fl (7.4-10.4); Monocytes Absolute Auto 0.5 K/mm3 (0.1-0.6); Monocytes Percent Auto 6.7 % (2.6-8.5); Neutrophils Absolute Auto 4.7 K/mm3 (1.3-6.7); Neutrophils Percent Auto 66.7 % (45.5-73.1); Platelet Count Result 233 k/mm3 (150-375); Red Blood Count 4.34 M/mm3 (4.6-6.20); Red Cell Distribution Width 13.3 % (11.5-14.5)
[2021-06-02 10:14] LABS: Iron 47 ug/dL (49-181)
[2021-06-02 10:23] LABS: Percent Iron Saturation 14 % (20-50)
[2021-06-06 11:01] LABS: Testosterone Total 287 ng/dL (250-1100)
== END 2021-06-02 08:37 | disposition home or self-care (01) ==
PROVIDERS: PCP Internal Medicine; Visit Provider Internal Medicine
DX: R53.83 Other fatigue (principal); D64.9 Anemia, unspecified
CPT/HCPCS: 36415; 83540; 83550; 84403; 84443; 85025

== ENCOUNTER 2021-10-02 08:44 | Outpatient (RCR) | payer MEDICARE, SELFPAY ==
[2021-07-21 09:39] LABS: INR 1.7; Prothrombin Time 19.2 Seconds (11.1-14.7)
[2021-10-02 09:19] LABS: INR 2.6; Prothrombin Time 27.4 Seconds (11.1-14.7)
== END 2021-10-19 23:59 | disposition home or self-care (01) ==
LOC: ANHLAB 08:44
PROVIDERS: PCP Internal Medicine; Referring Provider Dentist; Visit Provider Nurse Practitioner
DX: Z51.81 Encounter for therapeutic drug level monitoring (principal); I82.409 Acute embolism and thrombosis of unspecified deep veins of unspecified lower extremity; Z79.01 Long term (current) use of anticoagulants
CPT/HCPCS: 36415; 85610

== ENCOUNTER 2021-12-02 09:01 | Outpatient (CLI) | payer MEDICARE, SELFPAY ==
[2021-12-02 09:36] LABS: INR 2.1
[2021-12-02 09:38] LABS: Alanine Aminotransferase 16 U/L (4-50); Albumin Level 4.1 g/dL (3.5-5.1); Alkaline Phosphatase 48 U/L (38-126); Anion Gap 7 mmol/L (8-16); Aspartate Amino Transferase 33 U/L (17-59); Bilirubin,Total 0.5 mg/dL (0.2-1.3); Blood Urea Nitrogen 20 mg/dL (9-20); Calcium 9.3 mg/dL (8.4-10.2); Carbon Dioxide 26 mmol/L (22-30); Chloride 107 mmol/L (98-107); Cholesterol 130 mg/dL (0-200); Estimated Glomerular Filt Rate 46; Glucose 102 mg/dL (65-110); HDL Direct 28 mg/dL; Potassium 4.4 mmol/L (3.4-5.0); Sodium 140 mmol/L (137-145); Triglycerides 127 mg/dL (<150); Uric Acid 4.9 mg/dL (3.5-8.5)
[2021-12-02 09:49] LABS: LDL Cholesterol Direct 72 mg/dL
[2021-12-02 10:07] LABS: Prostate Specific Antigen 0.8 ng/mL (< OR = 4.0)
== END 2021-12-02 09:02 | disposition home or self-care (01) ==
LOC: ANHLAB 09:03
PROVIDERS: PCP Internal Medicine; Visit Provider Internal Medicine
DX: I10 Essential (primary) hypertension (principal); Z79.899 Other long term (current) drug therapy; M10.9 Gout, unspecified; Z12.5 Encounter for screening for malignant neoplasm of prostate; E78.5 Hyperlipidemia, unspecified
CPT/HCPCS: 36415; 80053; 80061; 84153; 84550; 85610; G0103

== ENCOUNTER 2021-12-02 09:07 | Outpatient (RCR) | payer MEDICARE, SELFPAY | END 2022-03-02 23:59 | disposition home or self-care (01) | LOC: ANHLAB 09:07 | PROVIDERS: PCP Internal Medicine; Visit Provider Internal Medicine | DX: Z51.81 Encounter for therapeutic drug level monitoring (principal); Z79.01 Long term (current) use of anticoagulants | CPT/HCPCS: 99199 ==

== ENCOUNTER 2021-12-10 08:30 | Outpatient (CLI) | payer MEDICARE, SELFPAY ==
[2021-12-10 09:23] LABS: Iron 90 ug/dL (49-181)
[2021-12-10 09:32] LABS: Percent Iron Saturation 28 % (20-50)
[2021-12-14 10:27] LABS: Testosterone Total 581 ng/dL (250-1100)
== END 2021-12-10 08:31 | disposition home or self-care (01) ==
LOC: ANHLAB 08:31
PROVIDERS: PCP Internal Medicine; Visit Provider Nurse Practitioner
DX: R79.89 Other specified abnormal findings of blood chemistry (principal); R53.83 Other fatigue; D64.9 Anemia, unspecified
CPT/HCPCS: 36415; 83540; 83550; 84403; 84443

== ENCOUNTER 2022-04-10 09:48 | Outpatient (CLI) | payer MEDICARE, SELFPAY ==
--- NOTE | ~2022-04-10 | CT_ITS ---
EXAMINATION: CT lung screening DATE: 04/10/2022 10:03 INDICATION: Personal history of nicotine dependence, prior smoker with 40 pack year history TECHNIQUE: Computed tomography (CT) of the chest was performed without intravenous contrast. The dose -length product (DLP) was 364.61 mGy-cm. Automated exposure control and iterative reconstruction tech [employer] were employed. COMPARISON: 04/10/2021 FINDINGS: There is stable to 2 mm nodules of the right lung apex. No new pulmonary nodules are identi fied. The lungs are free of acute opacities. No pleural effusion or pneumothorax. Calcified pulmonary nodules and calcified right hilar lymph nodes are consistent with old granulomatous disease. No path ologically enlarged thoracic lymph nodes are identified. The heart size is normal. There is a 9 mm no nobstructing stone of the left kidney upper pole. There is moderate thoracic spondylosis. IMPRESSION: 1. Lung-RADS category 2: Benign appearance or behavior. Continue annual screening with noncontrast lo w-dose chest CT in 12 months. Reviewed, dictated and finalized at location F. IMPRESSION: 1. Lung-RADS category 2: Benign appearance or behavior. Continue annual screeni ng with noncontrast low-dose chest CT in 12 months.
== END 2022-04-10 09:49 | disposition home or self-care (01) ==
PROVIDERS: PCP Internal Medicine; Visit Provider Nurse Practitioner Family
DX: Z12.2 Encounter for screening for malignant neoplasm of respiratory organs (principal); Z87.891 Personal history of nicotine dependence
CPT/HCPCS: 71271

== ENCOUNTER 2022-06-18 08:14 | Outpatient (CLI) | payer MEDICARE, SELFPAY ==
[2022-06-18 08:55] LABS: Basophils Percent Auto 0.6 % (0.2-1.2); Eosinophils Absolute Auto 0.2 K/mm3 (0-0.3); Eosinophils Percent Auto 3.9 % (0-4.4); Hematocrit 37.7 % (42.0-52.0); Hemoglobin 12.5 g/dL (14.0-18.0); Immature Granulocyte Absolute 0.02 K/mm3 (0.00-0.031); Immature Granulocyte Percent A 0.4 % (0-0.5); Lymphocytes Absolute Auto 1.33 K/mm3 (0.9-3.2); Lymphocytes Percent Auto 24.7 % (18.3-44.2); Mean Corpuscular HGB Conc 33.2 g/dl (32-36); Mean Corpuscular Volume 90.6 fl (80-100); Monocytes Absolute Auto 0.4 K/mm3 (0.1-0.6); Monocytes Percent Auto 6.5 % (2.6-8.5); Neutrophils Absolute Auto 3.5 K/mm3 (1.3-6.7); Neutrophils Percent Auto 63.9 % (45.5-73.1); Platelet Count Result 239 k/mm3 (150-375); Red Blood Count 4.16 M/mm3 (4.6-6.20); Red Cell Distribution Width 13.5 % (11.5-14.5); White Blood Count 5.4 K/mm3 (4.5-10.0)
[2022-06-18 09:07] LABS: Alanine Aminotransferase 19 U/L (6-50); Albumin Level 4.3 g/dL (3.5-5.1); Alkaline Phosphatase 46 U/L (38-126); Anion Gap 11 mmol/L (8-16); Aspartate Amino Transferase 32 U/L (17-59); Bilirubin,Total 0.6 mg/dL (0.2-1.3); Blood Urea Nitrogen 25 mg/dL (9-20); Calcium 8.7 mg/dL (8.4-10.2); Carbon Dioxide 24 mmol/L (22-30); Chloride 104 mmol/L (98-107); Cholesterol 145 mg/dL (0-200); Estimated Glomerular Filt Rate 40; Glucose 105 mg/dL (65-110); HDL Direct 34 mg/dL; Potassium 3.7 mmol/L (3.4-5.0); Sodium 139 mmol/L (137-145); Triglycerides 108 mg/dL (<150)
[2022-06-18 09:14] LABS: LDL Cholesterol Direct 66 mg/dL
[2022-06-18 09:34] LABS: Prostate Specific Antigen 0.6 ng/mL (< OR = 4.0)
[2022-06-18 09:40] LABS: Iron 87 ug/dL (49-181)
[2022-06-18 09:49] LABS: Percent Iron Saturation 27 % (20-50)
== END 2022-06-18 08:15 | disposition home or self-care (01) ==
PROVIDERS: PCP Internal Medicine; Visit Provider Internal Medicine
DX: E78.2 Mixed hyperlipidemia (principal); Z12.5 Encounter for screening for malignant neoplasm of prostate; F51.01 Primary insomnia; D64.9 Anemia, unspecified
CPT/HCPCS: 36415; 80053; 80061; 83540; 83550; 84153; 84443; 85025; 85610; G0103

== ENCOUNTER 2022-06-18 08:15 | Outpatient (RCR) | payer MEDICARE, SELFPAY ==
[2022-03-23 14:30] LABS: INR 2.7; Prothrombin Time 27.8 Seconds (11.1-14.7)
[2022-06-18 09:00] LABS: INR 2.9; Prothrombin Time 29.5 Seconds (11.1-14.7)
== END 2022-06-21 23:59 | disposition home or self-care (01) ==
LOC: ANHLAB 08:15
PROVIDERS: PCP Internal Medicine; Visit Provider Internal Medicine
DX: Z51.81 Encounter for therapeutic drug level monitoring (principal); Z79.01 Long term (current) use of anticoagulants
CPT/HCPCS: 36415; 85610

== ENCOUNTER 2022-09-26 07:47 | Outpatient (CLI) | payer MEDICARE, SELFPAY ==
--- NOTE | ~2022-09-26 | MR_ITS ---
EXAMINATION: MR lumbar spine wo con DATE: 09/26/2022 08:43 INDICATION: Low back pain. Falls. TECHNIQUE: Magnetic resonance imaging (MRI) of the lumbar spine was performed without intravenous con trast. Sequences included sagittal T2-weighted FSE, sagittal T2-weighted FS FSE, sagittal T1-weighted FSE, and axial T2-weighted FSE. COMPARISON: Lumbar spine MRI 11/04/2017 FINDINGS: There is 3 degrees dextrocurvature of lumbar spine. There is 3 mm anterolisthesis of L3 on L4 and L4 on L5. There is mild chronic anterior wedging of T12-L4 vertebral bodies. There is moderate ly decreased disc height at T11-T12 and T12-L1, severely decreased disc height at L1-L2, mildly decre ased disc height at L2-L3, moderately decreased disc height at L3-L4 and L4-L5, and mildly decreased disc height at L5-S1. The distal spinal cord signal intensity is normal. The conus medullaris is at T 12-L1. The following disc levels are specifically discussed: L1-L2: The disc is bulging and has an annular fissure. There is severe bilateral facet joint osteoart hritis. There is mild right and moderate left neural foraminal stenosis. There is mild central canal stenosis. L2-L3: The disc is bulging and has an annular fissure. There is severe bilateral facet joint osteoart hritis. There is mild bilateral neural foraminal stenosis. There is moderate central canal stenosis. L3-L4: The disc is bulging and has an annular fissure. There is severe bilateral facet joint osteoart hritis. There is mild bilateral neural foraminal stenosis. There is mild central canal stenosis. L4-L5: The disc is bulging and has an annular fissure. There is severe bilateral facet joint osteoart hritis. There is moderate bilateral neural foraminal stenosis. There is mild central canal stenosis. There is moderate stenosis of left lateral recess. L5-S1: The disc is bulging. There is severe bilateral facet joint osteoarthritis. There is mild bilat eral neural foraminal stenosis. There is mild central canal stenosis. IMPRESSION: 1. Severe lumbar spondylosis, mildly worsened from 11/04/2017. Reviewed, dictated and finalized at location A. 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
== END 2022-09-26 07:48 | disposition home or self-care (01) ==
PROVIDERS: PCP Internal Medicine; Visit Provider Internal Medicine
DX: R29.6 Repeated falls (principal); R29.898 Other symptoms and signs involving the musculoskeletal system; M47.896 Other spondylosis, lumbar region
CPT/HCPCS: 72148

== ENCOUNTER 2022-10-28 09:40 | Outpatient (RCR) | payer MEDICARE, SELFPAY ==
[2022-08-11 10:06] LABS: INR 3.3; Prothrombin Time 32.3 Seconds (11.1-14.7)
[2022-08-26 11:54] LABS: INR 3.3; Prothrombin Time 32.7 Seconds (11.1-14.7)
[2022-09-04 09:37] LABS: INR 2.7; Prothrombin Time 27.7 Seconds (11.1-14.7)
[2022-10-28 11:01] LABS: INR 3.2; Prothrombin Time 31.3 Seconds (11.1-14.7)
== END 2022-11-09 23:59 | disposition home or self-care (01) ==
LOC: ANHLAB 09:40
PROVIDERS: PCP Internal Medicine; Visit Provider Internal Medicine
DX: Z51.81 Encounter for therapeutic drug level monitoring (principal); I82.409 Acute embolism and thrombosis of unspecified deep veins of unspecified lower extremity; Z79.01 Long term (current) use of anticoagulants
CPT/HCPCS: 36415; 85610

== ENCOUNTER 2022-12-26 08:49 | Outpatient (CLI) | payer MEDICARE, SELFPAY ==
[2022-12-26 09:38] LABS: Hematocrit 39.4 % (42.0-52.0)
[2022-12-26 09:49] LABS: Alanine Aminotransferase 18 U/L (6-50); Albumin Level 4.4 g/dL (3.5-5.1); Alkaline Phosphatase 51 U/L (38-126); Anion Gap 7 mmol/L (8-16); Aspartate Amino Transferase 26 U/L (17-59); Bilirubin,Total 0.6 mg/dL (0.2-1.3); Blood Urea Nitrogen 21 mg/dL (9-20); Calcium 8.8 mg/dL (8.4-10.2); Carbon Dioxide 30 mmol/L (22-30); Chloride 103 mmol/L (98-107); Cholesterol 146 mg/dL (0-200); Estimated Glomerular Filt Rate 35; Glucose 122 mg/dL (65-110); HDL Direct 32 mg/dL; Potassium 3.6 mmol/L (3.4-5.0); Sodium 140 mmol/L (137-145); Triglycerides 156 mg/dL (<150); Uric Acid 5.4 mg/dL (3.5-8.5)
[2022-12-26 09:59] LABS: LDL Cholesterol Direct 74 mg/dL
[2022-12-31 11:59] LABS: Testosterone Total 266 ng/dL (250-1100)
== END 2022-12-26 08:50 | disposition home or self-care (01) ==
LOC: ANHLAB 08:50
PROVIDERS: PCP Internal Medicine; Visit Provider Internal Medicine
DX: E78.2 Mixed hyperlipidemia (principal); I10 Essential (primary) hypertension; M10.9 Gout, unspecified; R79.89 Other specified abnormal findings of blood chemistry; D64.9 Anemia, unspecified
CPT/HCPCS: 36415; 80053; 80061; 84403; 84550; 85014; 85018

== ENCOUNTER 2023-02-12 09:01 | Outpatient (CLI) | payer MEDICARE, SELFPAY ==
--- NOTE | ~2023-02-12 | US_ITS ---
Renal-Bladder ultrasound Clinical History: Chronic kidney disease Technique: Real-time sonographic imaging of the kidneys and urinary bladder was performed. Findings: The right kidney measures 11.4 cm in length and the left kidney measures 10.7 cm. There is no hydronephrosis or renal calculus identified. Renal cortical echogenicity is within normal limits. Bilateral renal cysts are noted. The urinary bladder is partially distended at the time of this exam. No intraluminal echoes are ident ified. No abnormal wall thickening is seen. Impression: No significant abnormality seen. Reviewed, dictated and finalized at location M. Impression: No significant abnormality seen.
== END 2023-02-12 09:02 ==
PROVIDERS: PCP Internal Medicine; Visit Provider Internal Medicine Nephrology
DX: N18.32 Chronic kidney disease, stage 3b (principal)
CPT/HCPCS: 76775

== ENCOUNTER 2023-02-23 07:51 | Outpatient (CLI) | payer MEDICARE, SELFPAY ==
[2023-02-23 09:20] LABS: Albumin Level 4.3 g/dL (3.5-5.1); Anion Gap 8 mmol/L (8-16); Blood Urea Nitrogen 20 mg/dL (9-20); Calcium 8.7 mg/dL (8.4-10.2); Carbon Dioxide 28 mmol/L (22-30); Chloride 103 mmol/L (98-107); Estimated Glomerular Filt Rate 43; Glucose 121 mg/dL (65-110); Phosphorus 2.5 mg/dL (2.5-4.5); Potassium 3.4 mmol/L (3.4-5.0); Sodium 139 mmol/L (137-145)
[2023-02-23 09:24] LABS: Creatinine Urine 242.2 mg/dL
[2023-02-23 09:31] LABS: Total Protein Urine Random < 5 mg/dL; Ur Ttl Prot Creatinine Ratio < 0.02 mg/mg (0-0.20)
[2023-02-23 09:32] LABS: Parathyroid Intact 74.5 pg/mL (7.5-53.5)
[2023-02-23 09:41] LABS: Vitamin D 25 Hydroxy 38.8 ng/mL
== END 2023-02-23 07:52 | disposition home or self-care (01) ==
PROVIDERS: PCP Family Medicine; Visit Provider Internal Medicine Nephrology
DX: N18.32 Chronic kidney disease, stage 3b (principal)
CPT/HCPCS: 36415; 80069; 82306; 82570; 83970; 84156; 85610

== ENCOUNTER 2023-02-23 07:56 | Outpatient (RCR) | payer MEDICARE, SELFPAY ==
[2023-01-13 10:52] LABS: INR 2.8; Prothrombin Time 28.2 Seconds (11.1-14.7)
[2023-02-23 09:23] LABS: INR 2.7; Prothrombin Time 31.1 Seconds (11.1-14.7)
== END 2023-04-13 23:59 | disposition home or self-care (01) ==
LOC: ANHLAB 07:56
PROVIDERS: PCP Internal Medicine; Visit Provider Nurse Practitioner
DX: Z51.81 Encounter for therapeutic drug level monitoring (principal); I82.409 Acute embolism and thrombosis of unspecified deep veins of unspecified lower extremity; Z79.01 Long term (current) use of anticoagulants
CPT/HCPCS: 36415; 85610

== ENCOUNTER 2023-04-15 09:48 | Outpatient (CLI) | payer MEDICARE, SELFPAY ==
--- NOTE | ~2023-04-15 | XR_ITS ---
Lumbosacral Spine: AP and lateral views, with neutral, flexion, and extension positioning Clinical History: Pain Findings: The normal lordotic curve is maintained. No fracture evident. 5 mm grade 1 anterolisthesis of L4 over L5. No instability evident on flexion or extension. There is mild degenerative disc narrow ing throughout the lumbar spine. There is mild to moderate facet arthropathy throughout the lumbar sp ine. The sacroiliac joints are normally outlined. Impression: Iqdo-my-mewhnqfr degenerative spondylosis, as above. 5 mm anterolisthesis of L4 over L5. Reviewed, dictated and finalized at location . Impression: Xnar-bk-djylezau degenerative spondylosis, as above. 5 mm anterolisthesis of L4 over L5.
--- NOTE | ~2023-04-15 | CT_ITS ---
EXAMINATION: CT lung screening DATE: 04/15/2023 10:18 INDICATION: Z87.891 - Personal history of nicotine dependence TECHNIQUE: Computed tomography (CT) of the chest was performed without intravenous contrast. Addition al 3D reconstructions utilizing coronal maximum intensity projection (MIP) were performed. Automated exposure control and iterative reconstruction technique were employed. The dose-length product was 37 7.41 mGy-cm. COMPARISON: 04/10/2022 FINDINGS: Calcified right lower lobe nodule and calcified right hilar lymph nodes consistent with old granuloma tous disease. No other suspicious pulmonary nodules, pneumonia, pulmonary edema or pleural effusion. Heart size is normal. No pericardial effusion. Thoracic aorta is normal in caliber. No pathologically enlarged thoracic lymphadenopathy. A few small hepatic and splenic calcific lesions consistent with old granulomatous disease. Moderate thoracic spondylosis with bridging osteophytes at multiple levels consistent with diffuse idiopathic skeletal hyperostosis (DISH). IMPRESSION: 1. . Lung-RADS category 1: Negative. Continue annual screening with noncontrast low-dose chest CT in 12 months. Reviewed, dictated and finalized at location L.
== END 2023-04-15 09:49 | disposition home or self-care (01) ==
PROVIDERS: PCP Family Medicine; Referring Provider Neurological Surgery; Visit Provider Physician Assistant
DX: Z12.2 Encounter for screening for malignant neoplasm of respiratory organs (principal); M48.061 Spinal stenosis, lumbar region without neurogenic claudication; Z87.891 Personal history of nicotine dependence; M47.896 Other spondylosis, lumbar region
CPT/HCPCS: 36415; 71271; 72110; 85610

== ENCOUNTER 2023-05-31 06:52 | Outpatient (CLI) | payer MEDICARE, SELFPAY ==
[2023-05-31 07:22] LABS: INR 1.3; Prothrombin Time 16.3 Seconds (11.1-14.7)
== END 2023-05-31 06:53 | disposition home or self-care (01) ==
PROVIDERS: PCP Family Medicine; Visit Provider Pain Medicine Pain Medicine
DX: Z79.01 Long term (current) use of anticoagulants (principal)
CPT/HCPCS: 36415; 85610

== ENCOUNTER 2023-06-29 10:11 | Outpatient (CLI) | payer MEDICARE, SELFPAY ==
[2023-06-29 11:08] LABS: Alanine Aminotransferase 19 U/L (6-50); Albumin Level 4.3 g/dL (3.5-5.1); Alkaline Phosphatase 47 U/L (38-126); Anion Gap 6 mmol/L (8-16); Aspartate Amino Transferase 28 U/L (17-59); Bilirubin,Total 0.6 mg/dL (0.2-1.3); Blood Urea Nitrogen 18 mg/dL (9-20); Calcium 8.7 mg/dL (8.4-10.2); Carbon Dioxide 29 mmol/L (22-30); Chloride 102 mmol/L (98-107); Cholesterol 150 mg/dL (0-200); Estimated Glomerular Filt Rate 40; Glucose 117 mg/dL (65-110); HDL Direct 31 mg/dL; Potassium 3.6 mmol/L (3.4-5.0); Sodium 137 mmol/L (137-145); Triglycerides 140 mg/dL (<150); Uric Acid 5.6 mg/dL (3.5-8.5)
[2023-06-29 11:10] LABS: Albumin Level 4.2 g/dL (3.5-5.1); Anion Gap 8 mmol/L (8-16); Blood Urea Nitrogen 18 mg/dL (9-20); Calcium 8.8 mg/dL (8.4-10.2); Carbon Dioxide 28 mmol/L (22-30); Chloride 102 mmol/L (98-107); Estimated Glomerular Filt Rate 40; Glucose 117 mg/dL (65-110); Potassium 3.6 mmol/L (3.4-5.0); Sodium 138 mmol/L (137-145)
[2023-06-29 11:19] LABS: LDL Cholesterol Direct 82 mg/dL
[2023-06-29 11:24] LABS: Creatinine Urine 91.1 mg/dL; Total Protein Urine Random 14 mg/dL; Ur Ttl Prot Creatinine Ratio 0.15 mg/mg (0-0.20)
== END 2023-06-29 10:12 | disposition home or self-care (01) ==
PROVIDERS: PCP Family Medicine; Referring Provider Internal Medicine Nephrology; Visit Provider Nurse Practitioner
DX: I12.9 Hypertensive chronic kidney disease with stage 1 through stage 4 chronic kidney disease, or unspecified chronic kidney disease (principal); N18.32 Chronic kidney disease, stage 3b; E78.5 Hyperlipidemia, unspecified; R73.9 Hyperglycemia, unspecified; M10.9 Gout, unspecified
CPT/HCPCS: 36415; 80053; 80061; 80069; 82570; 83036; 84156; 84550

== ENCOUNTER 2023-07-19 06:40 | Outpatient (CLI) | payer MEDICARE, SELFPAY ==
[2023-07-19 07:23] LABS: Hematocrit 39.8 % (42.0-52.0); Mean Corpuscular HGB Conc 32.7 g/dl (32-36); Mean Corpuscular Volume 91.9 fl (80-100); Mean Platelet Volume 9.8 fl (7.4-10.4); Platelet Count Result 233 k/mm3 (150-375); Red Blood Count 4.33 M/mm3 (4.6-6.20); Red Cell Distribution Width 13.1 % (11.5-14.5); White Blood Count 6.5 K/mm3 (4.5-10.0)
[2023-07-19 08:03] LABS: Prostate Specific Antigen 0.6 ng/mL (< OR = 4.0)
[2023-07-22 12:15] LABS: Testosterone Total 327 ng/dL (250-1100)
== END 2023-07-19 06:41 | disposition home or self-care (01) ==
PROVIDERS: PCP Family Medicine; Visit Provider Nurse Practitioner
DX: D64.9 Anemia, unspecified (principal); R79.89 Other specified abnormal findings of blood chemistry; Z12.5 Encounter for screening for malignant neoplasm of prostate
CPT/HCPCS: 36415; 84153; 84403; 85027; 85610; G0103

== ENCOUNTER 2023-07-19 06:45 | Outpatient (CLI) | payer MEDICARE, SELFPAY ==
[2023-07-19 07:31] LABS: Prothrombin Time 14.1 Seconds (11.1-14.7)
== END 2023-07-19 06:46 | disposition home or self-care (01) ==
LOC: ANHLAB 06:47
PROVIDERS: PCP Family Medicine; Visit Provider Pain Medicine Pain Medicine
DX: Z79.01 Long term (current) use of anticoagulants (principal)
CPT/HCPCS: 36415; 85610

== ENCOUNTER 2023-08-13 09:12 | Outpatient (RCR) | payer MEDICARE, SELFPAY ==
[2023-08-13 09:47] LABS: INR 3.5; Prothrombin Time 38.7 Seconds (11.1-14.7)
== END 2023-11-11 23:59 | disposition home or self-care (01) ==
LOC: ANHLAB 09:12
PROVIDERS: PCP Family Medicine; Visit Provider Nurse Practitioner
DX: Z51.81 Encounter for therapeutic drug level monitoring (principal); I82.409 Acute embolism and thrombosis of unspecified deep veins of unspecified lower extremity; Z79.01 Long term (current) use of anticoagulants
CPT/HCPCS: 36415; 85610

== ENCOUNTER 2023-08-16 06:38 | Outpatient (CLI) | payer MEDICARE, SELFPAY ==
--- NOTE | ~2023-08-16 | MR_ITS ---
MRI of the lumbar spine Clinical History: Spondylosis Technique: Axial T2-weighted images, and sagittal T1-weighted, T2-weighted, and T2 fat-sat images wer e acquired. COMPARISON: 09/26/2022 Findings: No fracture or subluxation of the lumbar spine seen. Osseous alignment is unchanged. No ghada picious bone marrow signal abnormality seen. At L1-L2, there is moderate degenerative disc disease. There is mild disc bulge and moderate facet ar thropathy, with mild central canal stenosis/thecal sac compression. There is moderate bilateral neura l foraminal narrowing. At L2-L3, there is disc bulge and severe facet arthropathy, resulting in severe spinal canal stenosis /thecal sac compression. Neural foramina are preserved. At L3-L4, there is disc bulge and severe facet arthropathy, resulting in moderate central canal steno sis/thecal sac compression. There is moderate bilateral neural foraminal narrowing. At L4-L5, there is disc bulge and severe facet arthropathy, resulting in severe spinal canal stenosis /thecal sac compression. There is severe bilateral neural foraminal narrowing. At L5-S1, there is disc bulge and severe facet arthropathy. No keegan central canal stenosis. There is mild bilateral neural foraminal narrowing. Paravertebral soft tissues are unremarkable. Impression: Severe degenerative spondylosis, as detailed above. There is multilevel central canal stenosis/thecal sac compression, and multilevel neural foraminal narrowing. Reviewed, dictated and finalized at [facility]. 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 There is multilevel central canal stenosis/thecal sac compression, and multilevel neural foraminal narrowi ng.
== END 2023-08-16 06:39 | disposition home or self-care (01) ==
PROVIDERS: PCP Family Medicine; Visit Provider Neurological Surgery
DX: M47.816 Spondylosis without myelopathy or radiculopathy, lumbar region (principal)
CPT/HCPCS: 72148

== ENCOUNTER 2023-11-01 08:12 | Outpatient (CLI) | payer MEDICARE, SELFPAY ==
--- NOTE | 2023-11-01 08:25 | ECG_ITS ---
Measurements Intervals [place] Rate: 62 P: 60 SD: 215 QRS: 25 QRSD: 106 T: 30 QT: 424 QTc: 434 Interpretive Statements SINUS RHYTHM WITH FIRST DEGREE AV BLOCK BORDERLINE ST-T WAVE ABNORMALITY- ANTERIOR LEADS BASELINE ARTIFACT- I, II, III, AVR, AVL, AVF, V2, V6 BORDERLINE ECG NO PREVIOUS ECG AVAILABLE FOR COMPARISON Electronically Signed On 11-01-2023 9:05:24 SENIOR DATA MINING ANALYST by Parveen Curry D.O.
[2023-11-01 08:53] LABS: Hematocrit 40.3 % (42.0-52.0); Mean Corpuscular HGB Conc 32.3 g/dl (32-36); Mean Corpuscular Hemoglobin 29.7 pg (26-34); Mean Platelet Volume 9.8 fl (7.4-10.4); Platelet Count Result 240 k/mm3 (150-375); Red Blood Count 4.38 M/mm3 (4.6-6.20); Red Cell Distribution Width 13.1 % (11.5-14.5)
[2023-11-01 08:57] LABS: Appearance Urine Clear (Clear); Bilirubin Urine Negative (Negative); Blood Urine Negative (Negative); Color Urine Yellow (Yellow); Glucose Urine UA Negative (Negative); Ketones Urine Negative (Negative); Leukocyte Esterase Ur Negative LEU/UL (Negative); Nitrate Urine Negative (Negative); Protein Urine Negative (Negative); Specific Grav Ur 1.019 (1.001-1.035)
[2023-11-01 09:00] LABS: Add Urine Microscopic? NO
[2023-11-01 09:04] LABS: Anion Gap 9 mmol/L (8-16); Blood Urea Nitrogen 20 mg/dL (9-20); Calcium 9.1 mg/dL (8.4-10.2); Carbon Dioxide 29 mmol/L (22-30); Chloride 103 mmol/L (98-107); Estimated Glomerular Filt Rate 40; Glucose 111 mg/dL (65-110); Potassium 3.7 mmol/L (3.4-5.0); Sodium 141 mmol/L (137-145)
[2023-11-01 09:33] LABS: INR 1.2; Prothrombin Time 15.4 Seconds (11.1-14.7)
[2023-11-01 10:03] LABS: Partial Thromboplastin Time 26.7 SECONDS (22.3-36.8)
== END 2023-11-01 08:13 | disposition home or self-care (01) ==
LOC: ANHSURGERY 08:16
PROVIDERS: PCP Family Medicine; Visit Provider Neurological Surgery
DX: Z01.818 Encounter for other preprocedural examination (principal); I44.0 Atrioventricular block, first degree; R94.31 Abnormal electrocardiogram [ECG] [EKG]; E78.00 Pure hypercholesterolemia, unspecified; M48.062 Spinal stenosis, lumbar region with neurogenic claudication; N18.9 Chronic kidney disease, unspecified; Z86.718 Personal history of other venous thrombosis and embolism
CPT/HCPCS: 36415; 80048; 81003; 85027; 85610; 85730; 93005

== ENCOUNTER 2023-11-03 03:57 | Day surgery (SDC) | payer MEDICARE, SELFPAY ==
[2023-10-27 12:51] VITALS: BMI 40.7
--- NOTE | 2023-10-27 13:23 | PC.NURSE ---
PRE-OP INSTRUCTIONS, PLEASE READ CAREFULLY Report to the Outpatient Waiting Room, entrance under the green pavilion located off [facility], at time _0600_ on date _11/03/23_. Planned Procedure Time: _0730_. PACK A SMALL OVERNIGHT BAG AND LEAVE IN THE CAR ALONG WITH YOUR WALKER Time changes happen often and if your time is changed the preop area will call you the afternoon before. - You and your visitor will be asked to self-screen and do not enter if you have any COVID symptoms. - A mask is optional within the hospital at this time. -VISITING HOURS 8AM-8PM Patients may have clear liquids (water, carbonated beverages, clear teas, apple juice) until 3 hours prior to surgery with a maximum of 20 ounces. - No food from midnight until time of surgery Take the following medications with a SIP of water the morning of surgery: _TOPIRAMATE, & NASAL SPRAY, PAIN PILL IF NEEDED_ DO NOT STOP ANY OF YOUR OTHER PRESCRIPTION MEDICATIONS PRIOR TO SURGERY ?EXCEPT THE FOLLOWING Medications to discontinue per DR. NAVA - _WARFARIN, ASPIRIN, FISH OIL, VIT E 7 DAYS PRIOR TO SURGERY, Date to take last dose 10/26/23 (PER PATIENT)_ Medications to discontinue per ANESTHESIA - _MULTIVITAMIN & SUPPLEMENTS 3 DAYS PRIOR TO SURGERY, Date to take last dose 10/30/23_ Please no make-up, nail malay, hairspray, perfume, deodorant, or body powder the day of surgery. No jewelry (including any body piercings) or valuables the day of surgery, leave them at home. Please take a shower or bath the night before, or the morning of, surgery with an antibacterial soap. Wear comfortable, loose fitting clothing. - Jewelry must be removed prior to entering the operating room. Rings and piercings that are not removed may be cut off. - The hospital will not accept responsibility for valuables. - Please leave all valuables, including medications, at home the day of surgery. If you are going home after surgery, a licensed route delivery service driver must drive you home. - NO public transportation without another adult if you receive anesthesia. - We recommend that an adult stay with you for 24 hours following discharge. - We also recommend that you do not drive, make important decision, drink alcoholic beverages, or take any drugs that were not prescribed by your health care provider for at least 24 hours after your discharge time. Follow any additional instructions given to you from your surgeon. If you or anyone in your household have experienced Covid symptoms in the past week, please notify your surgeon or the nurse liaison at the phone number below for possible testing. Telephone instructions given to _PATIENT_and asked if any additional questions and then verbalized understanding. Patient advised to call surgeon office or pre surgery nurse liaison [phone] if any additional questions.
--- NOTE | 2023-11-02 14:14 | WPDANESEPPF ---
Anes - Initial Pre Proc Eval Procedure: Operation Date: 11/03/23 07:30 Proposed Procedures p L2-3, L3-4, L4-5 Lumbar Laminectomy - Ana Maria Amezcua MD Date/Time: 11/02/23 14:14 Surgeon: Ana Maria Amezcua MD Pre Op Diagnosis: lumbar stenosis with neurogenic claudication Patient Data Age: 73 Gender: M Height: 1.83 m Weight: 136.36 kg Allergies Allergy/AdvReac Type Severity Reaction Status Date / Time No Known Allergies Allergy Unknown Verified 11/03/23 06:01 Home Medications Medication Instructions Recorded Confirmed Type aspirin 81 mg tablet,delayed 81 mg PO DAILY 08/10/19 11/03/23 History release (Adult Low Dose Aspirin) cyanocobalamin (vitamin B-12) 1,000 mcg PO DAILY 08/10/19 11/03/23 History 1,000 mcg tablet folic acid 800 mcg tablet 0.8 mg PO DAILY 08/10/19 11/03/23 History omega 5-zdt-vjc-fish oil 1,000 mg 2 cap PO DAILY 08/10/19 10/27/23 History (120 mg-180 mg) capsule (Fish Oil) sildenafil 100 mg tablet (Viagra) 100 mg PO DAILY PRN Erectile 08/10/19 10/27/23 History Dysfunction ascorbate calcium (vitamin C) 500 500 mg PO DAILY 12/10/21 11/03/23 History mg tablet hydrocodone 5 mg-acetaminophen 325 1 tablet PO Q8H PRN Pain 12/29/22 11/03/23 History mg tablet furosemide 80 mg tablet See Rx Instructions .Route 05/24/23 11/03/23 Rx .COMPLEX #90 tabs pantoprazole 40 mg tablet,delayed See Rx Instructions .Route 06/15/23 11/03/23 Rx release .COMPLEX #90 ea atorvastatin 20 mg tablet 20 mg PO DAILY #90 tabs 07/08/23 11/03/23 Rx febuxostat 40 mg tablet (Uloric) 40 mg PO DAILY #90 tabs 07/08/23 11/03/23 Rx ferrous sulfate 325 mg (65 mg See Rx Instructions .Route 07/08/23 11/03/23 Rx iron) tablet (Iron (ferrous .COMPLEX #180 tabs sulfate)) potassium chloride 10 mEq See Rx Instructions .Route 07/08/23 11/03/23 Rx capsule,extended release .COMPLEX #90 caps sulfamethoxazole 800 0.5 tablet PO Q12H #90 tabs 07/08/23 11/03/23 Rx mg-trimethoprim 160 mg tablet topiramate 25 mg tablet See Rx Instructions .Route 07/08/23 11/03/23 Rx .COMPLEX #90 tabs trazodone 150 mg tablet See Rx Instructions .Route 07/23/23 11/03/23 Rx .COMPLEX #90 tabs warfarin 5 mg tablet 5 mg PO DAILY #90 tabs 08/30/23 10/27/23 Rx azelastine 137 mcg (0.1 %) nasal See Rx Instructions .Route 10/12/23 11/03/23 Rx spray aerosol .COMPLEX #30 mL fluticasone propionate 50 1 spray intranasal DAILY 10/27/23 11/03/23 History mcg/actuation nasal spray,suspension multivitamin 1 tablet PO DAILY 10/27/23 11/03/23 History vitamin E 1 cap DAILY 10/27/23 10/27/23 History Patient hx anesthesia problems: none Family hx anesthesia problems: none Results Review: All pre-operative results and documents have been reviewed as part of the pre-operative evaluation. [facility] Past Medical History Medical History Anemia Chronic sinusitis Essential (primary) hypertension Fatigue Gastroesophageal reflux disease Gout without tophus History of DVT of lower extremity Mixed hyperlipidemia Morbidly obese Obstructive sleep apnea (~2002) CASIMIRO on CPAP Primary insomnia Primary osteoarthritis of left knee Surgical History Surgical History History of appendectomy History of surgery on arm severed R lower arm tendon, surgery flipped arm tendon to hand S/P cervical spinal fusion C5-C6 in 1999 Family History Family History Sibling Family history of diabetes mellitus in first degree relative Diabetes mellitus Hodgkins lymphoma Mother Asthma Family history of diabetes mellitus in first degree relative Diabetes mellitus Pernicious anemia Father Malignant neoplasm of prostate Other Family history of arthritis Family history of malignant neoplasm Hypertension Social History Social History (Rev
[2023-11-03] VITALS (14 sets, daily range): BP systolic 121–160; BP diastolic 61–119; PULSE 55–77; RESP 8–20; TEMP 36.3–37.6; O2SAT 93–100
--- NOTE | ~2023-11-03 | XR_ITS ---
XR fluoroscopy no charge Indication: Lumbar laminectomy TECHNIQUE: Fluoroscopy used during Lumbar laminectomy performed by [Ana Maria Amezcua MD] on 10/12. 7 seconds of fluoroscopy with one fluoroscopic images captured. FINDINGS: Correlate with procedure note. IMPRESSION: Fluoroscopy used during Lumbar laminectomy. Please refer to procedural report. Reviewed, dictated and finalized at location B. 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 Please refer to procedu ral report.
[2023-11-03] MEDS: LACTATED RINGERS 1,000 ML 30 ML IV CONT ×2 (06:40→10:42)
--- NOTE | 2023-11-03 07:16 | WPDHPUPDATE1 ---
History and Physical Update Update Date/Time: 11/03/23 07:16 History and Physical has been reviewed, including an updated exam of the patient. There are NO changes in the patient's condition. Risks, benefits, and alternatives have been discussed and questions answered. Patient agrees to proceed with procedure.
--- NOTE | 2023-11-03 07:16 | PM.IMHP ---
H&P: HPI History of Present Illness Date/Time: 11/03/23 07:16 Chief Complaint: Back pain Narrative: Mr. Nolan is a 72-year-old male with history of CKD, DVT on Coumadin, gout, and chronic left leg cellulitis to presents for evaluation of back pain.? He has long history of back pain which has worsened over the last couple years in particular.? He was actually scheduled to have a lumbar fusion with orthopedic spine surgeon at [facility], but the surgeon apparently lost his privileges and was unable to schedule the patient also wear due to insurance issues.? He describes back pain which is present only with standing and walking.? He can walk about 100 ft before the pain becomes too significant. ? His symptoms are severely limiting for him and have caused him to lead a very sedentary lifestyle.? He has gained 30 lb within the last 9 months due to his activity changes. He has been walking with a cane for many years due to intermittent issues cellulitis in the left leg.? He occasionally will get pain into the right thigh when upright and walking, but this does not happen on a consistent basis.? He has some paresthesias in the feet and sometimes has a sensation that he is dragging his left leg.? He also reports difficulty balance and having a sensation that his legs will give out on him.? He denies any bowel or bladder changes, neck pain, radicular pain or paresthesias into the arms, or upper extremity weakness.? He has now had physical therapy and epidural steroid injections as well as facet injections within the last year, none of which were beneficial for him.? He currently takes hydrocodone 5-325 mg 3 to 4 times a day. ? Of note, he had a previous ACDF C6-7 about 25 years ago for treatment of neck pain.? He had a DVT many years ago but remains on Coumadin.? He takes a baby aspirin daily as well.? He is chronically on antibiotics for cellulitis of his left lower leg. [facility] Past Medical History Medical History Anemia Chronic sinusitis Essential (primary) hypertension Fatigue Gastroesophageal reflux disease Gout without tophus History of DVT of lower extremity Mixed hyperlipidemia Morbidly obese Obstructive sleep apnea (~2002) CASIMIRO on CPAP Primary insomnia Primary osteoarthritis of left knee Surgical History Surgical History History of appendectomy History of surgery on arm severed R lower arm tendon, surgery flipped arm tendon to hand S/P cervical spinal fusion C5-C6 in 1999 Family History Family History Sibling Family history of diabetes mellitus in first degree relative Diabetes mellitus Hodgkins lymphoma Mother Asthma Family history of diabetes mellitus in first degree relative Diabetes mellitus Pernicious anemia Father Malignant neoplasm of prostate Other Family history of arthritis Family history of malignant neoplasm Hypertension Social History Social History Social History: Smoked for 40 years, 1.5ppd = 60 pack years Albin is somewhat confident filling out medical forms. In the last 12 months he has not received assistance from an organization or program. Smoking packs per day: 1.5 Smoking cigarettes per day: 30.0 Years smoked: 40 Smoking pack-years: 60.00 Smoking status: Former smoker Tobacco type: cigarettes Second hand tobacco smoke exposure: Yes Smoking end date: 10/11/10 Alcohol intake: current Drinks per week: 1 Alcohol use details: 2 BEERS/MONTH Substance use: current Substance use type: marijuana Other substance usage details: MED CARD 3 HITS/DAY Last use: 10/27/23 Do You Feel Safe in your Home?: Yes Lack of Transportation: No Lack of Food: Never True Current Housing: I Have Housing
[2023-11-03] MEDS: ceFAZolin 3 GM/D5W 100 ML 100 ML IVPB (07:25)
[2023-11-03] MEDS: BUPIVACAINE/EPINEPHRINE 0.5% 30 ML VIAL INFILTRATE (07:59)
--- NOTE | 2023-11-03 10:46 | P.OPB_ITS ---
Procedure Note - Brief Procedure Note - Brief Date of procedure: 11/03/23 lumbar stenosis with neurogenic claudication Post-op diagnosis: Same Surgeon: Ana Maria Amezcua MD Planning Technician: Too Anesthesia: GETA Findings: Successful laminectomies at L2-3, L3-4, L4-5 without complication Estimated blood loss (mL): 500 Drains: Yes Packing: No Pathology: None sent Complications: None Condition: Stable Disposition: PACU
[2023-11-03] MEDS: fentaNYL CITRATE INJ (*CRX) 100 MCG/2 ML VIAL 25 MCG IV PUSH ×2 (11:10→11:46)
--- NOTE | 2023-11-03 12:26 | ADMGEN ---
This patient, Albin Nolan, was admitted to 3 [facility] Surg Room 330-01. Patient/family oriented to hospital policies and general routines including ID bracelet, bed and alarms, visiting hours, pain management, procedures, bathroom and other care routines, personal items, smoking policy, room service/diet, and visiting hours. Information on how to activate the Rapid Response Team has been discussed. Patient/Family are encouraged to report perceived risks to care and to ask questions if they do not understand what they are told or what they should do.
[2023-11-03] MEDS: ACETAMINOPHEN 500 MG TABLET 1000 MG PO ×2 (12:40→17:54)
[2023-11-03] MEDS: FUROSEMIDE 80 MG TABLET BY MOUTH (12:43)
[2023-11-03] MEDS: PANTOPRAZOLE 40 MG TABLET BY MOUTH (12:43)
[2023-11-03] MEDS: SULFAMETHOXAZOLE/TRIMETHOPRIM 400/80 MG TABLET 1 TAB PO ×2 (12:43→20:15)
[2023-11-03] MEDS: TOPIRAMATE 25 MG TABLET BY MOUTH (12:43)
[2023-11-03] MEDS: CYCLOBENZAPRINE HCL 10 MG TABLET PO ×2 (12:43→17:56)
[2023-11-03] MEDS: oxyCODONE HCL (*CRX) 5 MG TAB IR 10 MG PO ×2 (12:44→20:16)
--- NOTE | 2023-11-03 14:12 | W.PM.PROC2 ---
Procedure Note - Detailed Date of Procedure 11/03/23 Pre-op Diagnosis lumbar stenosis with neurogenic claudication Post-op Diagnosis Same Procedure Performed 1. L2, L3, and L4 laminectomies 2. Use of microscope for microsurgical dissection 3. Use of C-arm for fluoroscopy Surgeon Ana Maria Amezcua MD Anesthesia General Indications Mr. Nolan is a 73-year-old male with a long history of back pain worsening the last few years which is claudicatory in nature as well as occasional pain in the right leg.? He also reports sensation of his legs giving out on him and difficulties with balance.?He is neurologically intact on physical exam without findings concerning for cervical myelopathy.? MRI lumbar spine shows severe central stenosis at L2-3 and at L4-5 with moderate stenosis at L3-4.? Given that he has failed multiple other treatment options, so I offered surgery in the form of L2-3, L3-4, and L4-5 laminectomies. Risks were discussed with the patient including bleeding, pain, infection, CSF leak, weakness, paresthesias, nerve damage, failure to relieve symptoms, and anesthetic complications were discussed. The patient provided written informed consent to proceed.? Description of Procedure The patient was brought to the operating room, and general anesthesia was induced. The patient was placed prone on the open Bird table, and all pressure points were padded. Compression devices were placed on the patient's calves. The skin was cleaned with alcohol. The C-arm was brought onto the field to localize the appropriate disc space and assist with incisional planning. The area was prepped and draped in usual sterile fashion. A time out was conducted, and pre-operative antibiotics were administered. Local anesthesia was injected into the planned incision. A midline skin incision was made with a 10-blade scalpel, and dissection was carried down with the monopolar cautery to open the fascia. Once the spinous processes were located, a subperiosteal dissection was performed to expose the laminae bilaterally. A self-retaining retractor was placed. The C-arm was brought in to confirm the correct level. A Leksell rongeur was used to remove the spinous processes and posterior elements. The microscope was draped and brought into the field for microsurgical dissection. The high-speed drill was used to thin the laminae to the ligamentum flavum. A curved currette was used to separate the ligament from the bone. Kerrison rongeurs were then used to remove remaining laminae and ligamentum flavum. Medial facetectomies and foraminotomies were performed at L2-3, L3-4, and L4-5 with the kerrison as well. The facet joints were undercut to widen the spinal canal. The Kerrison was then passed into the foraminae to ensure they were open. The dura appeared well decompressed. Hemostasis was ensured, and the area was copiously irrigated. No evidence of CSF leak was noted. A hemovac drain was placed and tunneled inferiorly. The muscle was loosely approximated with 0-Vicryl. The fascia was closed with 0-Vicryl in an interrupted fashion. The soft tissue was again copiously irrigated. The dermis was closed with 2-0 and 3-0 interrupted Vicryl. The skin was closed with 3-0 running nylon. The drain was secured with a 3-0 nylon as well. Sterile dressings were applied. The patient was returned supine on the stretcher, extubated, and transferred to PACU without incident. Surgical codes: 39806, [id number], 85058 Estimated Blood Loss 500 Drains Yes Packing No Pathology None sent Complications None Condition Stable Disposition PACU [facility] Billing Surgery - Charge Forward: Surgery Billing
[2023-11-03] MEDS: ceFAZolin 2 GM/D5W 50 ML 2 GM/50 ML BAG IVPB ×2 (16:10→23:58)
[2023-11-03] MEDS: traZODone HCL 50 MG TABLET 300 MG BY MOUTH (20:14)
[2023-11-03] MEDS: DOCUSATE SODIUM 100 MG CAPSULE PO (20:15)
[2023-11-04 00:46] VITALS: BP 115/64; PULSE 58; RESP 16; TEMP 36.3; O2SAT 97
[2023-11-04] MEDS: oxyCODONE HCL (*CRX) 5 MG TAB IR 10 MG PO ×3 (05:09→17:44)
[2023-11-04 05:49] VITALS: BP 111/69; PULSE 60; RESP 18; TEMP 36.4; O2SAT 97
[2023-11-04] MEDS: ceFAZolin 2 GM/D5W 50 ML 2 GM/50 ML BAG IVPB (06:04)
[2023-11-04] MEDS: FOLIC ACID 0.4 MG TABLET 0.8 MG PO (08:21)
[2023-11-04] MEDS: PANTOPRAZOLE 40 MG TABLET BY MOUTH (08:21)
[2023-11-04] MEDS: SULFAMETHOXAZOLE/TRIMETHOPRIM 400/80 MG TABLET 1 TAB PO (08:21)
[2023-11-04] MEDS: DOCUSATE SODIUM 100 MG CAPSULE PO (08:21)
[2023-11-04] MEDS: FEBUXOSTAT 40 MG TABLET PO (08:21)
[2023-11-04] MEDS: CYCLOBENZAPRINE HCL 10 MG TABLET PO ×2 (08:21→16:18)
[2023-11-04] MEDS: TOPIRAMATE 25 MG TABLET BY MOUTH (08:21)
[2023-11-04] MEDS: ATORVASTATIN 20 MG TABLET PO (08:21)
[2023-11-04] MEDS: ACETAMINOPHEN 500 MG TABLET 1000 MG PO ×2 (08:22→16:18)
[2023-11-04] MEDS: FUROSEMIDE 80 MG TABLET BY MOUTH (08:26)
[2023-11-04 12:00] VITALS: BP 108/61; PULSE 58; RESP 18; TEMP 36.1; O2SAT 100
[2023-11-04 14:00] VITALS: BP 114/60; PULSE 117; RESP 18; TEMP 36.7; O2SAT 100
--- NOTE | 2023-11-04 17:15 | WPDNEUROSGPN ---
Progress Note: A&P Assessment and Plan (1) Status post lumbar laminectomy: Code(s): Z98.890 - Other specified postprocedural states Status: Acute Plan Discharge home this evening Restrictions and wound care reviewed Follow up in 2 weeks in clinic for suture removal Subjective Date/time seen: 11/04/23 17:15 Interval history: Lower back pain around incision which is manageable with medication. States the pain related to his chronic cellulitis in the left leg has flared up. Tolerating PO and voiding independently. Ambulated in halls and stairs. His drain was accidentally ripped out today. Would like to go home. Exam Narrative: Dressing with small amount of serosanguinous drainage Full strength in lower extremities Sensation intact Objective Data Vital Signs Vital Signs: Vital Signs - 24 hr 11/03/23 20:30 11/03/23 20:00 11/04/23 00:46 Temperature 97.4 F L 97.3 F L Pulse Rate 61 61 58 L Respiratory Rate 18 18 16 Blood Pressure 135/72 115/64 Pulse Oximetry 98 98 97 Oxygen Delivery Room Air 11/04/23 05:49 11/04/23 08:00 11/04/23 12:00 Temperature 97.6 F 97 F L Pulse Rate 60 58 L Respiratory Rate 18 18 Blood Pressure 111/69 108/61 Pulse Oximetry 97 100 Oxygen Delivery Room Air 11/04/23 14:00 Temperature 98.1 F Pulse Rate 117 H Respiratory Rate 18 Blood Pressure 114/60 Pulse Oximetry 100 Oxygen Delivery Intake/Output Intake/Output: Intake & Output 11/01/23 11/02/23 11/03/23 11/04/23 23:59 23:59 23:59 23:59 Intake Total 510 1170 Output Total 100 1890 Balance 410 -720 Meds/Results Medications: Active Medications Generic Name Dose Route Start Last Admin Trade Name Freq PRN Reason Stop Dose Admin Acetaminophen 1,000 mg 11/03/23 12:00 11/04/23 16:18 Acetaminophen 500 Mg Tablet PO 1,000 mg Q6HR KENYETTA Administration Al Hydrox/Mg Hydrox/Simethicone 20 ml 11/03/23 10:40 Mag Hydrox/Al Hydrox/Simeth 30 Ml Udc PO Q4H PRN Indigestion/Heartburn Atorvastatin Calcium 20 mg 11/04/23 09:00 11/04/23 08:21 Atorvastatin 20 Mg Tablet PO 20 mg DAILY KENYETTA Administration Azelastine HCl 1 spray 11/03/23 10:45 11/04/23 08:21 Azelastine Hcl Nasal 0.1% 137 Mcg/Spr 30 Ml Btl NASAL Not Given Q12HR KENYETTA Bisacodyl 10 mg 11/03/23 10:40 Bisacodyl 10 Mg Suppository RECTAL DAILY PRN Constipation Cyclobenzaprine HCl 10 mg 11/03/23 10:40 11/04/23 16:18 Cyclobenzaprine Hcl 10 Mg Tablet PO 10 mg TID PRN Administration Muscle Spasms Docusate Sodium 100 mg 11/03/23 21:00 11/04/23 08:21 Docusate Sodium 100 Mg Capsule PO 100 mg Q12HR [facility] Administration Febuxostat 40 mg 11/04/23 09:00 11/04/23 08:21 Febuxostat 40 Mg Tablet PO 40 mg DAILY KENYETTA Administration Fentanyl Citrate 25 mcg 11/02/23 14:14 11/03/23 11:46 Fentanyl Citrate Inj (*Crx) 100 Mcg/2 Ml Vial IV PUSH 25 mcg Q2M PRN Administration Pain Fluticasone Propionate 1 spray 11/04/23 09:00 11/04/23 08:22 Fluticasone Propionate 0.05% Na Spr 16 Gm Btl (*Bkc) NASAL Not Given DAILY [facility] Folic Acid 0.8 mg 11/04/23 09:00 11/04/23 08:21 Folic Acid 0.4 Mg Tablet PO 0.8 mg DAILY [facility] Administration Furosemide 80 mg 11/03/23 10:45 11/04/23 08:26 Furosemide 80 Mg Tablet BY MOUTH 80 mg DAILY [facility] Administration Cefazolin Sodium 2 gm in 50 mls @ 100 mls/hr 11/03/23 15:00 11/04/23 15:53 Ancef 2 Gm/D5w 50 Ml IVPB Not Given Q8H [facility] Ondansetron HCl 4 mg 11/02/23 14:14 Ondansetron Inj 4 Mg/2 Ml Vial IV PUSH ONCE PRN Nausea Ondansetron HCl 4 mg 11/03/23 10:40 Ondansetron Inj 4 Mg/2 Ml Vial IV PUSH Q8H PRN Nausea And Vomiting Oxycodone HCl 5 mg 11/03/23 10:40 Oxycodone Hcl (*Crx) 5 Mg Tab Ir PO Q6H PRN Pain Rated 4-6 Oxycodone HCl 10 mg 11/03/23 10:40 11/04/23 11:33 Oxycodone Hcl (*Crx) 5 Mg Tab Ir PO 10 mg Q6H PRN Administrati
== END 2023-11-04 17:17 | disposition home or self-care (01) ==
LOC: ANHSURGERY 05:51 → ANH3MEDSUR 16:22 → ANHSUROVER 11-08 13:45
PROVIDERS: PCP Family Medicine; Visit Provider Neurological Surgery
PROC: (CPT 63005; principal; 2023-11-03 07:30)
DX: M48.062 Spinal stenosis, lumbar region with neurogenic claudication (principal); D64.9 Anemia, unspecified; E78.2 Mixed hyperlipidemia; G47.33 Obstructive sleep apnea (adult) (pediatric); I10 Essential (primary) hypertension; K21.9 Gastro-esophageal reflux disease without esophagitis; M10.9 Gout, unspecified; Z86.718 Personal history of other venous thrombosis and embolism; E66.01 Morbid (severe) obesity due to excess calories; Z68.41 Body mass index [BMI] 40.0-44.9, adult; Z79.82 Long term (current) use of aspirin; Z79.01 Long term (current) use of anticoagulants; Z98.1 Arthrodesis status; Z87.891 Personal history of nicotine dependence; F12.90 Cannabis use, unspecified, uncomplicated
CPT/HCPCS: 63047; 63048 ×2; 36415; 80048; 81003; 85027; 85610; 85730; 93005; 97116; 97161; 97165; 97530; 97535; 99199; A9270; J0330; J0690; J1100; J2405; J2704; J3010; J7120

== ENCOUNTER 2024-01-12 07:58 | Outpatient (CLI) | payer MEDICARE, SELFPAY ==
[2024-01-12 08:46] LABS: Hematocrit 40.6 % (42.0-52.0); Hemoglobin 12.8 g/dL (14.0-18.0); Mean Corpuscular HGB Conc 31.5 g/dl (32-36); Mean Corpuscular Hemoglobin 29.2 pg (26-34); Mean Corpuscular Volume 92.7 fl (80-100); Platelet Count Result 261 k/mm3 (150-375); Red Blood Count 4.38 M/mm3 (4.6-6.20); Red Cell Distribution Width 13.9 % (11.5-14.5)
[2024-01-12 09:05] LABS: Alanine Aminotransferase 17 U/L (6-50); Albumin Level 4.3 g/dL (3.5-5.1); Alkaline Phosphatase 59 U/L (38-126); Anion Gap 5 mmol/L (4-12); Aspartate Amino Transferase 30 U/L (17-59); Bilirubin,Total 0.6 mg/dL (0.2-1.3); Blood Urea Nitrogen 17 mg/dL (9-20); Carbon Dioxide 30 mmol/L (22-30); Chloride 105 mmol/L (98-107); Cholesterol 157 mg/dL (0-200); Estimated Glomerular Filt Rate 43; Glucose 110 mg/dL (65-110); HDL Direct 34 mg/dL; Phosphorus 2.8 mg/dL (2.5-4.5); Potassium 3.4 mmol/L (3.4-5.0); Sodium 140 mmol/L (137-145); Triglycerides 197 mg/dL (<150)
[2024-01-12 09:09] LABS: Parathyroid Intact 85.3 pg/mL (7.5-53.5)
[2024-01-12 09:15] LABS: LDL Cholesterol Direct 85 mg/dL
[2024-01-12 09:22] LABS: Creatinine Urine 213.3 mg/dL; Total Protein Urine Random 10 mg/dL; Ur Ttl Prot Creatinine Ratio 0.05 mg/mg (0-0.20)
[2024-01-12 09:34] LABS: Vitamin D 25 Hydroxy 43.9 ng/mL
[2024-01-13 00:37] LABS: Prostate Specific Antigen 0.8 ng/mL (< OR = 4.0)
[2024-01-16 12:05] LABS: Testosterone Total 282 ng/dL (250-1100)
== END 2024-01-12 07:59 | disposition home or self-care (01) ==
PROVIDERS: PCP Family Medicine; Referring Provider Nurse Practitioner; Visit Provider Internal Medicine Nephrology
DX: R79.89 Other specified abnormal findings of blood chemistry (principal); E55.9 Vitamin D deficiency, unspecified; I12.9 Hypertensive chronic kidney disease with stage 1 through stage 4 chronic kidney disease, or unspecified chronic kidney disease; N18.32 Chronic kidney disease, stage 3b; N25.81 Secondary hyperparathyroidism of renal origin; Z79.01 Long term (current) use of anticoagulants; Z12.5 Encounter for screening for malignant neoplasm of prostate; E78.5 Hyperlipidemia, unspecified
CPT/HCPCS: 36415; 80053; 80061; 82306; 82570; 83970; 84100; 84153; 84156; 84403; 85027; 85610; G0103

== ENCOUNTER 2024-02-12 07:20 | Outpatient (CLI) | payer MEDICARE, SELFPAY ==
--- NOTE | ~2024-02-12 | XR_ITS ---
EXAM: XR hip BI wo pelvis DATE: 02/12/2024 07:48 HISTORY: PRIMARY OSTEOARTHRITIS. BILAT HIP PAIN NO INJ . COMPARISON: None available. FINDINGS: Mildly decreased mineralization. Lumbar degenerative disc disease. Mild degenerative bolanos e in the bilateral SI joints. Moderate bilateral superior hip joint space narrowing and mild osteophy tosis, with the suggestion of cam-type morphology of the bilateral femoral heads. Scattered pelvic en thesopathy. Minimal lytic symphysis degenerative change. IMPRESSION: Moderate bilateral hip osteoarthritis. Reviewed, dictated and finalized at location K.
== END 2024-02-12 07:21 | disposition home or self-care (01) ==
LOC: ANHIMG 07:28
PROVIDERS: PCP Family Medicine; Visit Provider Physical Medicine & Rehabilitation
DX: M16.0 Bilateral primary osteoarthritis of hip (principal)
CPT/HCPCS: 73521

== ENCOUNTER 2024-02-12 08:08 | Outpatient (RCR) | payer MEDICARE, SELFPAY ==
[2024-01-12 09:02] LABS: INR 2.8; Prothrombin Time 31.4 Seconds (11.1-14.7)
[2024-02-12 08:38] LABS: INR 3.3; Prothrombin Time 36.1 Seconds (11.1-14.7)
== END 2024-04-11 23:59 | disposition home or self-care (01) ==
LOC: ANHLAB 08:08
PROVIDERS: PCP Family Medicine; Visit Provider Nurse Practitioner
DX: Z51.81 Encounter for therapeutic drug level monitoring (principal); Z79.01 Long term (current) use of anticoagulants
CPT/HCPCS: 36415; 85610

== ENCOUNTER 2024-04-24 08:55 | Outpatient (CLI) | payer MEDICARE, SELFPAY ==
--- NOTE | ~2024-04-24 | CT_ITS ---
CT Scan of the Chest without Contrast: Clinical Indication: Lung cancer screening, nicotine dependence Technique: Contiguous sections were acquired throughout the chest without intravenous contrast. Dose reduction technique was used on this scan by utilizing automated exposure control and iterative recon struction technique. The dose-length product (DLP) was 374.77 mGy-cm. COMPARISON: 04/15/2023 Findings: There is no evidence of any significant mediastinal, hilar or axillary lymphadenopathy. The mediastin al soft tissues appear normal. There is no evidence of pleural or pericardial effusion. The lungs are clear, aside from calcified right lower lobe granuloma. Images through the upper abdomen reveal 9 mm nonobstructing left renal stone. Impression: Lung RADS 2: Benign appearance. 12 month follow-up screening CT advised. Reviewed, dictated and finalized at [facility]. Impression: Lung RADS 2: Benign appearance. 12 month follow-up screening CT advised.
== END 2024-04-24 08:56 | disposition home or self-care (01) ==
PROVIDERS: PCP Family Medicine; Visit Provider Physician Assistant
DX: Z12.2 Encounter for screening for malignant neoplasm of respiratory organs (principal); Z87.891 Personal history of nicotine dependence
CPT/HCPCS: 71271

== ENCOUNTER 2024-07-14 08:14 | Outpatient (RCR) | payer MEDICARE, SELFPAY ==
[2024-04-24 10:24] LABS: Prothrombin Time 50.5 Seconds (11.1-14.7)
[2024-04-24 10:30] LABS: INR 5.5
[2024-05-02 10:12] LABS: INR 2.4; Prothrombin Time 26.6 Seconds (11.1-14.7)
[2024-07-14 09:22] LABS: INR 4.8; Prothrombin Time 45.2 Seconds (11.1-14.7)
== END 2024-07-23 23:59 | disposition home or self-care (01) ==
LOC: ANHLAB 08:14
PROVIDERS: PCP Family Medicine; Visit Provider Nurse Practitioner
DX: Z51.81 Encounter for therapeutic drug level monitoring (principal); Z79.01 Long term (current) use of anticoagulants
CPT/HCPCS: 36415; 85610

== ENCOUNTER 2024-07-14 08:16 | Outpatient (CLI) | payer MEDICARE, SELFPAY ==
[2024-07-14 09:19] LABS: Alanine Aminotransferase 13 U/L (6-50); Albumin Level 4.1 g/dL (3.5-5.1); Alkaline Phosphatase 74 U/L (38-126); Anion Gap 8 mmol/L (4-12); Aspartate Amino Transferase 26 U/L (17-59); Bilirubin,Total 0.5 mg/dL (0.2-1.3); Blood Urea Nitrogen 19 mg/dL (9-20); Calcium 8.8 mg/dL (8.4-10.2); Carbon Dioxide 28 mmol/L (22-30); Chloride 104 mmol/L (98-107); Cholesterol 128 mg/dL (0-200); Estimated Glomerular Filt Rate 37; Glucose 98 mg/dL (65-110); HDL Direct 29 mg/dL; Potassium 3.5 mmol/L (3.4-5.0); Sodium 140 mmol/L (137-145); Triglycerides 171 mg/dL (<150)
[2024-07-14 09:21] LABS: Albumin Level 4.1 g/dL (3.5-5.1); Anion Gap 9 mmol/L (4-12); Blood Urea Nitrogen 20 mg/dL (9-20); Calcium 8.8 mg/dL (8.4-10.2); Carbon Dioxide 28 mmol/L (22-30); Chloride 104 mmol/L (98-107); Estimated Glomerular Filt Rate 37; Glucose 99 mg/dL (65-110); Phosphorus 2.3 mg/dL (2.5-4.5); Potassium 3.7 mmol/L (3.4-5.0); Sodium 141 mmol/L (137-145)
[2024-07-14 09:30] LABS: LDL Cholesterol Direct 56 mg/dL
[2024-07-14 09:31] LABS: Creatinine Urine 288.9 mg/dL; Total Protein Urine Random 6 mg/dL; Ur Ttl Prot Creatinine Ratio 0.02 mg/mg (0-0.20)
== END 2024-07-14 08:17 | disposition home or self-care (01) ==
PROVIDERS: PCP Family Medicine; Referring Provider Internal Medicine Nephrology; Visit Provider Nurse Practitioner
DX: E78.5 Hyperlipidemia, unspecified (principal); I12.9 Hypertensive chronic kidney disease with stage 1 through stage 4 chronic kidney disease, or unspecified chronic kidney disease; N18.32 Chronic kidney disease, stage 3b
CPT/HCPCS: 36415; 80053; 80061; 80069; 82570; 84156

== ENCOUNTER 2025-01-08 08:05 | Outpatient (RCR) | payer MEDICARE, SELFPAY ==
[2024-10-30 15:14] LABS: INR 3.5; Prothrombin Time 35.1 Seconds (11.1-14.7)
[2025-01-08 08:49] LABS: INR 4.3; Prothrombin Time 41.2 Seconds (11.1-14.7)
== END 2025-01-28 23:59 | disposition home or self-care (01) ==
LOC: ANHLAB 08:05
PROVIDERS: PCP Family Medicine; Visit Provider Nurse Practitioner Family
DX: Z51.81 Encounter for therapeutic drug level monitoring (principal); Z79.01 Long term (current) use of anticoagulants
CPT/HCPCS: 36415; 85610

== ENCOUNTER 2025-01-08 08:08 | Outpatient (CLI) | payer MEDICARE, SELFPAY ==
--- OUTSIDE RECORDS SUMMARY | 2025-01-08 08:17 | XMS_ITS | Clinical Summary ---
Author Organization [facility] Address [address] [place] [address] Care Team Providers Care Teradata Architect Name Role Phone Mark Xavier MD Primary Care Provider Source Comments [facility],non-owned Affiliates and Associated Physician Practices is amultiple site organization consisting of ambulatory clinics and hospital sitesin [place] and [place]. This disclosure is being madepursuant to the Care Everywhere program and may not contain all information available regarding this patient. Last updated 18.[facility] Active Problems Problem Noted Date Diagnosed Date Obstructive sleep apnea 03/17/2015 Osteoarthritis 03/17/2015 Acute embolism and thrombosi s of deep vein of left lower extremity 03/17/2015 Cellulitis of extremity 03/17/2015 Overview (01/10/2018): LLE Laceration without foreign b mirela of right hand, subsequent encounter 03/17/2015 Personal history of nicotine dependence 03/17/20 15 Gout 03/17/2015 Obesity 03/17/2015 Uncomplicated asthma 03/17/2015 Immunizations Name Administration Dates Next Due PNEUMOCOCCAL PPSV23 03/19/2015 Social History Tobacco Use Types Packs/Day Years Used Date Smoking Tobacco: Former Alcohol Use Standard Drinks/Week Comments No 0 (1 standard drink = 0.6 oz pur e alcohol) Sex and Gender Information Value Date Recorded Sex Assigned at Not on file Gender Identity Not on file Sexual Orientation Not on file Last Filed Vital Signs Vital Sign Reading Time Taken Comments Blood Pressure 121/70 03/20/2015 10:00 AM CDT Pulse 70 03/20/2015 10:00 AM CDT Temperature 36.9 C (98.4 F) 03/20/2015 10:00 AM CDT Respiratory Rate 18 03/20/2015 10:00 AM CDT Oxygen Saturation 96% 03/20/2015 10:00 AM CDT Inhaled Oxygen Concentration - - Weight 136.1 kg (300 lb) 06/20/2015 10:10 AM CDT Height 185.4 cm (6' 1 ) 06/20/2015 10:10 AM CDT Body Mass Index 39.58 06/20/2015 10:10 AM CDT Plan of Treatment Health Maintenance Due Date Last Done Comments COLOGUARD (AGES 45-75) - COL ON CA SCREENING 1952 COLON MONITORING 1952 COLONOSCOPY - COLON CA SCREENING 1952 CT COLONOGRAPHY - COLON CA SCREENING 1952 Colorectal Cancer Screening 1952 FIT - COLON CA SCREENING 1952 FLEX SIG - COLON CA SCREENING 1952 LIPID TESTING 1952 HEPATITIS C SCREENING 10/13/1970 DTAP/TDAP/TD VACCINES (1 - Tdap) 1971 ZOSTER VACCINE (1 of 2) 2002 PNEUMOCOCCAL VACCINE 50+ (2 of 2 - PCV) 03/19/2016 03/19/2015 AAA SCREENING 2017 COVID-19 VACCINE ( - 2023-2 5 season) 2024 INFLUENZA VACCINE (#1) 2024 DEPRESSION SCREENING 10/11/2024 Respiratory Syncytial Virus (RSV) Vaccine Pt: or over 60 yrs (1 - 1-dose 75+ series) 2027 HEPATITIS B VACCINE Aged Out No longe r eligible based on patient's age to complete this topic HIB VACCINE Aged Out No longer eligi ble based on patient's age to complete this topic HPV VACCINE Aged Out No longer eligi ble based on patient's age to complete this topic MENINGOCOCCAL (Group B) VACC INE SHARED DECISION-MAKING Aged Out No longer eligibl e based on patient's age to complete this topic MENINGOCOCCAL GROUPS A/C/Y/W VACCINE Aged Out No longer eligible b ased on patient's age to complete this topic Care Teams Teradata Architect Relationship Specialty Start Date End Date Mark Xavier MD [address] [place] [address] PCP - General 03/16/15
--- OUTSIDE RECORDS SUMMARY | 2025-01-08 08:17 | XMS_ITS | Clinical Summary ---
Author Organization [facility] Address [address] [place] [address] Phone Care Team Providers Care Medical Record Coder Name Role Phone Unavailable Primary Care Provider Unavailabl e Medications Medication Sig Dispensed Refills Start Date End Date Status omega-3 (FISH OIL) 1000 MG capsule 1 tab/cap bid 05/02/2012 Active pantoprazole (PROTONIX) 40 MG EC tablet 1 tab/cap qday 05/02/2012 Activ e aspirin (ST SHITAL) 81 MG EC tablet 1 tab/cap qday 05/02/2012 Active potassium chloride (KLOR-CON) 10 MEQ CR tablet 1 tab/cap qday 05/02/2012 Active topiramate (TOPAMAX) 25 MG tablet 1 tab/cap bid 05/04/2012 Active bumetanide (BUMEX) 2 MG tablet 1 tab/cap qday 05/02/2012 Active warfarin (COUMADIN) 1 MG tablet as directed 05/02/2012 Active atorvastatin (LIPITOR) 20 MG tablet 1 tab/cap qday 05/02/2012 Active Febuxostat (ULORIC) 40 MG tablet 1 tab/cap qday 05/04/2012 Active Active Problems Problem Noted Date Diagnosed Date Hypertensive chronic kidney disease with stage 1 through stage 4 chronic kidney disease, or unspecified chronic kidney disease 01/08/2016 Localized edema 07/10/2015 Chronic kidney disease, stage 3 (moderate) 04/11 Obstructive sleep apnea 04/11/2012 Essential (primary) hypertension 04/11/2012 Anemia 04/11/2012 Lymphedema, not elsewhere classified 04/11/2012 Immunizations Name Administration Dates Next Due Influenza TIV (IM) 01/08/2016,12/26/2014 Pneumococcal Conjugate 13-Valent 01/20/2017 Family History Medical History Relation Comments Diabetes mellitus Mother Kidney disease Mother Kidney stone Neg Hx Relation Status Comments Mother Social History Tobacco Use Types Packs/Day Years Used Date Smoking Tobacco: Former Comments:Smoking History Pac ks/day: quit - in 2009 Alcohol Use Standard Drinks/Week Comments Yes 0 (1 standard drink = 0.6 oz pure alcohol) Alcoholic Drinks/day: social use Sex and Gender Information Value Date Recorded Sex Assigned at Not on file Gender Identity Not on file Sexual Orientation Not on file Last Filed Vital Signs Vital Sign Reading Time Taken Comments Blood Pressure 130/80 01/19/2018 12:01 AM CDT Pulse - - Temperature 37.1 C (98.7 F) 01/19/2018 12:01 AM CDT Respiratory Rate - - Oxygen Saturation - - Inhaled Oxygen Concentration - - Weight 132 kg (290 lb) 01/19/2018 12:01 AM CDT Height 185.4 cm (6' 1 ) 01/19/2018 12:01 AM CDT Body Mass Index 38.26 01/19/2018 12:01 AM CDT Plan of Treatment Health Maintenance Due Date Last Done Comments Pneumococcal PPSV23/PCV13 65 + Years / Low and Medium Risk (2 of 3 - PPSV23 or PCV20) 01/20/2018 01/20/2017 Influenza Vaccine (#1) 2024 01/08/2016, 2014
--- OUTSIDE RECORDS SUMMARY | 2025-01-08 08:17 | XMS_ITS | CONTINUITY OF CARE DOCUMENT ---
Author Name angie adams Address Unknown Organization [facility] Address [address] [place] [address] [address] [place] [address] Phone [phone] Care Team Providers Care Neuro Intensivist Physician Name Role Phone angie adams Unavailable Unavailable
[2025-01-08 08:58] LABS: Albumin Level 4.1 g/dL (3.5-5.1); Anion Gap 11 mmol/L (4-12); Blood Urea Nitrogen 18 mg/dL (9-20); Calcium 8.6 mg/dL (8.4-10.2); Carbon Dioxide 21 mmol/L (22-30); Chloride 104 mmol/L (98-107); Estimated Glomerular Filt Rate 41; Glucose 101 mg/dL (65-110); Phosphorus 2.7 mg/dL (2.5-4.5); Potassium 3.7 mmol/L (3.4-5.0); Sodium 136 mmol/L (137-145)
[2025-01-08 10:22] LABS: Creatinine Urine 288.6 mg/dL
[2025-01-08 10:26] LABS: Parathyroid Intact 57.9 pg/mL (14.5-75.2)
[2025-01-08 10:27] LABS: Total Protein Urine Random < 5 mg/dL; Ur Ttl Prot Creatinine Ratio < 0.02 mg/mg (0-0.20)
[2025-01-08 10:34] LABS: Vitamin D 25 Hydroxy 32.2 ng/mL
== END 2025-01-08 08:09 | disposition home or self-care (01) ==
PROVIDERS: PCP Nurse Practitioner Family; Visit Provider Internal Medicine Nephrology
DX: E55.9 Vitamin D deficiency, unspecified (principal); N25.81 Secondary hyperparathyroidism of renal origin; I12.9 Hypertensive chronic kidney disease with stage 1 through stage 4 chronic kidney disease, or unspecified chronic kidney disease; N18.32 Chronic kidney disease, stage 3b
CPT/HCPCS: 36415; 80069; 82306; 82570; 83970; 84156

== ENCOUNTER 2025-02-01 15:45 | Outpatient (CLI) | payer MEDICARE, SELFPAY ==
--- NOTE | ~2025-02-01 | US_ITS ---
EXAM: RENAL ULTRASOUND HISTORY: N28.1 - Cyst of kidney, acquired COMPARISON: 02/12/2023. Reference is also made to a CT examination of the chest dated 04/24/2024 FINDINGS: RIGHT KIDNEY: 9.6 x 5.3 x 4.4cm. The parenchyma of the right kidney is increased in echogenicity. No hydronephrosis or bulky renal calculi. Redemonstration of multiple rounded anechoic avascular foci, unchanged from prior, measuring 19 mm in the lower pole and 25 mm in the interpolar region. LEFT KIDNEY: 9.8 x 5.6 x 4.2 cm No hydronephrosis. The parenchyma of the left kidney is increased in echogenicity. A single rounded avascular anechoic focus is present within the lower pole of the left kidney measuri ng 11 mm in greatest dimension, unchanged from prior. 11 mm calculus within the upper pole, unchanged from CT examination dated 04/24/2024 BLADDER: The bladder is minimally distended, with bilateral ureteral jets identified. IMPRESSION: No hydronephrosis or renal calculi. Findings suggesting medical renal disease. Bilateral simple cysts, unchanged from 2022. Nonobstructing left renal calculus, unchanged from 04/24/2024. Reviewed, dictated and finalized at location A.
--- OUTSIDE RECORDS SUMMARY | 2025-02-01 15:48 | XMS_ITS | Clinical Summary ---
Author Organization [facility] Address [address] [place] [address] Phone Care Team Providers Care Felt Strip Finisher Name Role Phone Unavailable Primary Care Provider Unavailabl e Medications omega-3 (FISH OIL) 1000 MG capsule 1 tab/cap bid 05/02/2012 Activ e pantoprazole (PROTONIX) 40 MG EC tablet 1 tab/cap qday 05/02/2012 Active aspirin (ST SHITAL) 81 MG EC tablet 1 tab/cap qday 05/02/2012 Active potassium chloride (KLOR-CON) 10 MEQ CR tablet 1 tab/cap qday 05/02/2012 Active topiramate (TOPAMAX) 25 MG tablet 1 tab/cap bid 05/04/2012 Activ e bumetanide (BUMEX) 2 MG tablet 1 tab/cap [...] 04/11/2012 Lymphedema, not elsewhere classified 04/11/2012 Immunizations Immunization Administration Dates Next Due Influenza TIV (IM) [...] Recorded Sex Assigned at Not on file Legal Sex Male 7:40 AM 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
--- OUTSIDE RECORDS SUMMARY | 2025-02-01 15:48 | XMS_ITS | CONTINUITY OF CARE DOCUMENT ---
Author Name angie adams Address Unknown Organization [facility] Address [address] [place] [address] [address] [place] [address] Phone [phone] Care Team Providers Care Power Grader Operator Name Role Phone angie adams Unavailable Unavailable
--- OUTSIDE RECORDS SUMMARY | 2025-02-01 15:48 | XMS_ITS | Clinical Summary ---
Author Organization [facility] Address [address] [place] [address] Care Team Providers Care Hydraulic Repairer Name Role Phone Mark Xavier MD Primary Care Provider [phone] Source Comments [facility],non-owned Affiliates and Associated Physician Practices is amultiple site organization consisting of ambulatory clinics and hospital sitesin [place], [place], [place] and [place]. This disclosure is being madepursuant to the Care Everywhere program and may not contain all information available regarding this patient. Last updated 18.[facility] Active Problems Problem Noted Date Diagnosed Date Obstructive sleep apnea 03/17/2015 Osteoarthritis 03/17/2015 Acute embolism and thrombosi s of deep vein of left lower extremity 03/17/2015 Cellulitis of extremity 03/17/2015 Overview (01/10/2018): LLE Laceration without foreign b mirela of right hand, subsequent encounter 03/17/2015 Personal history of nicotine dependence 03/17/20 15 Gout 03/17/2015 Obesity 03/17/2015 Uncomplicated asthma 03/17/2015 Immunizations Immunization Administration Dates Next Due PNEUMOCOCCAL PPSV23 03/19/2015 Social History Tobacco Use Types Packs/Day Years Used Date Smoking Tobacco: Former Alcohol Use Standard Drinks/Week Comments No 0 (1 standard drink = 0.6 oz pur e alcohol) Sex and Gender Information Value Date Recorded Sex Assigned at Not on file Legal Sex Male 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
[2025-02-01 16:30] LABS: Cholesterol 119 mg/dL (0-200); HDL Direct 31 mg/dL; Triglycerides 110 mg/dL (<150); Uric Acid 4.1 mg/dL (3.5-8.5)
[2025-02-01 16:41] LABS: LDL Cholesterol Direct 61 mg/dL
--- OUTSIDE RECORDS SUMMARY | 2025-02-01 16:58 | XMS_ITS | Clinical Summary ---
Author Organization [facility] Address [address] [place] [address] Care Team Providers Care Automotive Engineering Teacher Name Role Phone Mark Xavier MD Primary Care Provider [phone] Source Comments [facility],non-owned Affiliates and Associated Physician Practices is amultiple site organization consisting of ambulatory clinics and hospital sitesin [place], [place], [place] and [place]. This disclosure is being madepursuant to the Care Everywhere program and may not contain all information available regarding this patient. 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
--- OUTSIDE RECORDS SUMMARY | 2025-02-01 16:58 | XMS_ITS | Clinical Summary ---
Author Organization [facility] Address [address] [place] [address] Phone Care Team Providers Care Railroad Signal Operator Name Role Phone Unavailable Primary Care Provider [...]
--- OUTSIDE RECORDS SUMMARY | 2025-02-01 16:58 | XMS_ITS | CONTINUITY OF CARE DOCUMENT ---
Author Name angie adams Address Unknown Organization [facility] Address [address] [place] [address] [address] [place] [address] Phone [phone] Care Team Providers Care Turning Machine Set Up Operator Name Role Phone angie adams Unavailable Unavailable
== END 2025-02-01 15:46 | disposition home or self-care (01) ==
PROVIDERS: PCP Nurse Practitioner Family; Visit Provider Internal Medicine Nephrology
DX: N28.1 Cyst of kidney, acquired (principal); N20.0 Calculus of kidney; M10.9 Gout, unspecified; N52.9 Male erectile dysfunction, unspecified; B35.1 Tinea unguium; Z68.38 Body mass index [BMI] 38.0-38.9, adult; S81.802A Unspecified open wound, left lower leg, initial encounter; K57.90 Diverticulosis of intestine, part unspecified, without perforation or abscess without bleeding; Z00.00 Encounter for general adult medical examination without abnormal findings; M47.816 Spondylosis without myelopathy or radiculopathy, lumbar region; N18.9 Chronic kidney disease, unspecified; G47.33 Obstructive sleep apnea (adult) (pediatric); D64.9 Anemia, unspecified; M17.12 Unilateral primary osteoarthritis, left knee; F51.01 Primary insomnia; E78.2 Mixed hyperlipidemia; I10 Essential (primary) hypertension; J32.9 Chronic sinusitis, unspecified; I89.0 Lymphedema, not elsewhere classified; Z79.899 Other long term (current) drug therapy; I82.409 Acute embolism and thrombosis of unspecified deep veins of unspecified lower extremity; X58.XXXA Exposure to other specified factors, initial encounter
CPT/HCPCS: 36415; 76775; 80061; 84550

== ENCOUNTER 2025-02-27 09:18 | Outpatient (RCR) | payer MEDICARE, SELFPAY ==
[2025-02-01 16:41] LABS: INR 3.8; Prothrombin Time 38.5 Seconds (11.1-14.7)
[2025-02-27 10:23] LABS: INR 3.2; Prothrombin Time 33.5 Seconds (11.1-14.7)
== END 2025-05-02 23:59 | disposition home or self-care (01) ==
LOC: ANHLAB 09:18
PROVIDERS: PCP Nurse Practitioner Family; Visit Provider Nurse Practitioner Family
DX: Z79.01 Long term (current) use of anticoagulants (principal)
CPT/HCPCS: 36415; 85610

== ENCOUNTER 2025-02-27 09:20 | Outpatient (CLI) | payer MEDICARE, SELFPAY ==
--- OUTSIDE RECORDS SUMMARY | 2025-02-27 09:32 | XMS_ITS | Clinical Summary ---
Author Organization [facility] Address [address] [place] [address] Care Team Providers Care Grill Attendant Name Role Phone Mark Xavier MD Primary Care Provider [phone] Source Comments [facility],non-owned Affiliates and Associated Physician Practices is amultiple site organization consisting of ambulatory clinics and hospital sitesin [place], [place], [place] and [place]. This disclosure is being madepursuant to the Care Everywhere program and may not contain all information available regarding this patient. 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
--- OUTSIDE RECORDS SUMMARY | 2025-02-27 09:32 | XMS_ITS | Clinical Summary ---
Author Organization [facility] Address [address] [place] [address] Phone Care Team Providers Care Gear Grinding Machine Operator Name Role Phone Unavailable Primary Care [...]
[2025-02-27 10:09] LABS: Alanine Aminotransferase 16 U/L (6-50); Aspartate Amino Transferase 47 U/L (17-59)
== END 2025-02-27 09:21 | disposition home or self-care (01) ==
PROVIDERS: PCP Nurse Practitioner Family; Visit Provider Podiatrist Foot & Ankle Surgery
DX: B35.1 Tinea unguium (principal)
CPT/HCPCS: 36415; 84450; 84460

== ENCOUNTER 2025-03-20 15:44 | Outpatient (CLI) | payer MEDICARE, SELFPAY ==
--- NOTE | ~2025-03-20 | US_ITS ---
EXAMINATION: US aorta [facility] DATE: 03/21/2025 10:59 CDT INDICATION: Personal history of nicotine dependence. High cholesterol. TECHNIQUE: Grayscale, color Doppler, and pulsed Doppler images of the aorta and common iliac arteries were obtained. COMPARISON: None. FINDINGS: The proximal aorta measures 2.1 cm greatest sagittal dimension. The mid aorta measures 1.7 cm greates t sagittal dimension. The distal aorta measures 1.7 cm greatest sagittal dimension. The right common internal iliac artery measures 9 mm. The left common iliac artery measures 10 mm. IMPRESSION: 1. Normal caliber aorta without aneurysm. Reviewed, dictated and finalized at location B.
--- OUTSIDE RECORDS SUMMARY | 2025-03-20 17:00 | XMS_ITS | CONTINUITY OF CARE DOCUMENT ---
Author Name angie adams Address Unknown Organization [facility] Address [address] [place] [address] [address] [place] [address] Phone [phone] Care Team Providers Care Precision Lens Technician Name Role Phone angie adams Unavailable Unavailable
--- OUTSIDE RECORDS SUMMARY | 2025-03-20 17:00 | XMS_ITS | Clinical Summary ---
Author Organization [facility] Address [address] [place] [address] Care Team Providers Care Technical Assistant Name Role Phone Mark Xavier MD Primary Care Provider [phone] Source Comments [facility],non-owned Affiliates and Associated Physician Practices is amultiple site organization consisting of ambulatory clinics and hospital sitesin [place], [place], [place] and [place]. This disclosure is being madepursuant to the Care Everywhere program and may not contain all information available regarding this patient. 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
--- OUTSIDE RECORDS SUMMARY | 2025-03-20 17:00 | XMS_ITS | Clinical Summary ---
Author Organization [facility] Address [address] [place] [address] Phone Care Team Providers Care Die Technician Name Role Phone Unavailable Primary Care Provider [...] 12:01 AM CDT Height 185.4 cm (6' 1) 01/19/2018 12:01 AM CDT Body Mass Index 38.26 01/19/2018 12:01 AM CDT Plan of Treatment Health Maintenance Due Date Last Done Comments Pneumococcal PPSV23/PCV13 65 + Years / Low and Medium Risk (2 of 3 - PPSV23) 01/20/2018 01/20/2017 Influenza Vaccine (Season Ended) 2025 01/08/20 16, 12/26/2014
== END 2025-03-20 15:45 | disposition home or self-care (01) ==
PROVIDERS: PCP Nurse Practitioner Family; Visit Provider Nurse Practitioner Family
DX: Z87.891 Personal history of nicotine dependence (principal)
CPT/HCPCS: 76706

== ENCOUNTER 2025-05-07 12:40 | Outpatient (CLI) | payer MEDICARE, SELFPAY ==
--- NOTE | ~2025-05-07 | CT_ITS ---
CT Scan of the Chest without Contrast: Clinical Indication: Lung cancer screening, nicotine dependence Technique: Contiguous sections were acquired throughout the chest without intravenous contrast. Dose reduction technique was used on this scan by utilizing automated exposure control and iterative recon struction technique. The dose-length product (DLP) was 304.94 mGy-cm. COMPARISON: 04/24/2024 Findings: There is no evidence of any significant mediastinal, hilar or axillary lymphadenopathy. The mediastin al soft tissues appear normal. There is no evidence of pleural or pericardial effusion. The lungs are clear, aside from calcified right lower lobe granuloma. Images through the upper abdomen reveal 9 mm left renal stone. Impression: Lung RADS 1: Negative. 12 month follow-up screening CT advised. Reviewed, dictated and finalized at location . Impression: Lung RADS 1: Negative. 12 month follow-up screening CT advised.
--- OUTSIDE RECORDS SUMMARY | 2025-05-07 12:42 | XMS_ITS | Continuity of Care Document ---
Author Organization [facility] Address [address] [place] [address] Phone Care Team Providers Care Operator Catalyst Concentration Name Role Phone Mely RM, Adrian Unavailable [...] Microalbumin MG/DL 12:49:09 <0.7 mg/dL Final PERFORMED BY:[employer],[address] [place] [address] Ur Creatinine 12:49:09 37.0 mg/dL 16.0-241.0 Final PERFORMED BY:[employer],[address] [place] [address] Ur Microalb/Creat Ratio 12:49:09 see below mg/g <30.0 Final Unable to calculate value due to result being outsideanalyzer's reporting limit.The [place] [employer] defines increased urinealbumin excretion as follows:Category Spot Collection Microalbumin/Crea tinine Ratio (mg/g)Normal < 30Moderately increased 30-299Clinical albuminuria >/= 300Because of variability in urinary albumin excretion,ADA recommendations specify that 2-3 specimens, collectedwithin a 3-6 month period, should exhibit abnormality priorto diagnostic consideration.PER FORMED BY:[employer],[address] [place] [address] L EGEND: L=Low LL=Very Low H=High HH=Very High A=Abnormal AA=Very Abnormal Advance Directives Directive Yes / No Effective Date File Name No Information Encounters Encounter Description Practice Location Reason(s) For Visit Diagnoses Date Provider Providers Copied on Encounter [facility], [address] [place] [address], [address], tel:[phone] No Information 2 Mely Campbell. [address], [address], [place], [place], [id number] , [place]. tel:[phone] Office/outpat ient Visit, Est [facility], [address], [address], tel:[phone] [facility] Chronic Kidney Disease (chief complaint) Elevated blood-pressure reading, without diagnosis of hypertensionVitami n D deficiency, unspecifiedChronic kidney disease, stage 3a 1 Mely Campbell. [address], [address], [place], [place], [id number] , [place]. tel:[phone] Specialist : Anthony Rehman, [address], [place], [address]. tel:[phone] cialist: Khanh Mendoza, [address] [place] [address] [address], [place], [address]. tel:[phone] erring Provider: Ana Maria Coronado, [address] [place] [address] [address], [place], [address]. tel:[phone] Telehealth Office/outpat ient Visit, Est [facility], [address] [place] [address], [address], tel:[phone] [facility] Chronic Kidney Disease (chief complaint) Chronic kidney disease, stage 3 (moderate)Elevated blood-pressure reading, without diagnosis of hypertensionVitami n D deficiency, unspecified 0 Mely Campbell. [address] [place] [address], [address], [place], [id number] , . tel:[phone] Specialist : Anthony Rehman, [address] [place] [address] [place] [address], [address]. tel:[phone] cialist: Khanh Mendoza, [address] [place] [address] [place] [address], [address]. tel:[phone] erring Provider: Ana Maria Coronado, [address] [place] [address] [address], [place], [address]. tel:[phone] [facility], [address] [place] [address], [address], tel:[phone] [facility] Chronic kidney disease, stage 3 (moderate)Hematuri a, unspecifiedElevate d blood-pressure reading, without diagnosis of hypertensionVitami n D deficiency, unspecified 9 Mely Campbell. [address] [place] [address], [address], [place], [id number] , . tel:[phone] Referring Provider: Ana Maria Coronado, [address] [place] [address] [address], [place], [address]. tel:[phone] Office/outpat ient Visit, Est [facility], [address] [place] [address], [address], tel:[phone] [facility] Chronic Kidney Disease (chief complaint) Chronic kidney disease, stage 3 (moderate)Hematuri a, unspecifiedElevate d blood-pressure reading, without diagnosis of hypertensionVitami n D deficiency, unspecified 9 Mely Campbell. [address] [place] [address], [address], [place], [id number] , [place]. tel:[phone] Referring Provider: Ana Maria Coronado, [address] [place] [address] [address], [place], [address]. tel:[phone] Office Consultation [facility], [address], [address], tel:[phone] [facility] Chronic Kidney Disease (chief complaint) Chronic kidney disease, stage 3 (moderate)Hematuri a, unspecifiedElevate d blood-pressure reading, without diagnosis of hypertension 9 Mely aCmpbell. [address] [place] [address], [address], [place], [place], [id number] , [place]. tel:[phone] Specialist : Anthony Rehman, [address] [place] [address] [address], [address]. tel:[phone] cialist: Khanh Mendoza, [address] [place] [address] [address], [place], [address]. tel:[phone] erring Provider: Ana Maria Coronado, [address] [place] [address] [address], [place], [address]. tel:[phone] [facility], [address], [place], [address], tel:[phone] [facility] [place] No Information 9 Mely Campbell. [facility] [facility], [address], [place], [place], [id number] , . tel:[phone] Specialist : Anthony Rehman, [address] [address], [place], [address]. tel:[phone] cialist: Khanh Mendoza, [address] [place] [address] [address], [place], [address]. tel:[phone] erring Provider: Ana Maria Coronado, [address] [place] [address] [address], [place], [address]. tel:[phone] Family History Family Member Type Diagnosis Age At Onset Problem (finding) Family history of Diabe raciel mellitus Problem (finding) Family history of coronary arteriosclerosis Problem (finding) Family history of Strok e Immunizations Vaccine Date Status Comments Influenza, seasonal, injectable administe red Source: Source Unspecified Payers Payer name Insurance type Covered republican ID Authoriza tion(s) [employer] Choice PPO CI [id number] Social History Type Description Quantity Date Captured [...]
--- OUTSIDE RECORDS SUMMARY | 2025-05-07 12:42 | XMS_ITS | Clinical Summary ---
Author Organization [facility] Address [address] [place] [place] [address] Care Team Providers Care Customs And Border Protection Officer Name Role Phone Mark Xavier MD Primary Care Provider [phone] Source Comments [facility],non-owned Affiliates and Associated Physician Practices is amultiple site organization consisting of ambulatory clinics and hospital sitesin [place], [place], [place] and [place]. This disclosure is being madepursuant to the Care Everywhere program and may not contain all information available regarding this patient. 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
--- OUTSIDE RECORDS SUMMARY | 2025-05-07 12:42 | XMS_ITS | Continuity of Care Document ---
Author Organization [facility] Address [address] [place] [address] Care Team Providers Care Pre K Teacher Name Role Phone Amy Solomon MD Unavailable Unavailable Procedures Procedure Date Ecg-routine 12 Lead; Intrpt & 0 Calcium Scoring, Pro Advance Directives Directive Yes / No Effective Date File Name No Information Encounters Encounter Description Practice Location Reason(s) For Visit Diagnoses Date Provider Providers Copied on Encounter [facility], [address] [place] [address], [address], [facility] No Information 0 Juanito Reyes. [address] [place] [address], [facility] [address], [place], [address], [place]. tel:[phone] Referring Provider: Chaz Sigala, [address] [place] [address] [address] [place], [address]. tel:[phone] [facility], [address] [place] [address], [address], [place] [facility] No Information 0-201 6 Marie Wilder. [address] [facility], [address], [address], [place]. tel:[phone] Referring Provider: Meño Welch, [address] [facility] [address], [place], [address]. tel:[phone] Family History Family Member Type Diagnosis Age At Onset No Information Payers Payer name Insurance type Covered libertarian ID Authoriza tion(s) [employer] Gold Plus O CI [id number] Social History Type Description Quantity Date Captured [...]
--- OUTSIDE RECORDS SUMMARY | 2025-05-07 12:42 | XMS_ITS | Clinical Summary ---
Author Organization [facility] Address [address] [place] [phone] Phone Care Team Providers Care Waste Duster Name Role Phone Unavailable Primary Care Provider [...] and Medium Risk (2 of 3 - PCV20 or PCV21) 01/20/2018 01/20/2017 Influenza Vaccine (#1) 2025 01/08/2016, 2014
== END 2025-05-07 12:41 | disposition home or self-care (01) ==
PROVIDERS: PCP Nurse Practitioner Family; Visit Provider Physician Assistant
DX: Z12.2 Encounter for screening for malignant neoplasm of respiratory organs (principal); Z87.891 Personal history of nicotine dependence
CPT/HCPCS: 71271

== ENCOUNTER 2025-06-28 12:31 | Outpatient (RCR) | payer MEDICARE, SELFPAY ==
[2025-05-07 13:28] LABS: INR 2.6; Prothrombin Time 27.6 Seconds (11.1-14.7)
[2025-06-28 13:45] LABS: INR 4.0; Prothrombin Time 36.9 Seconds (11.1-14.7)
== END 2025-08-05 23:59 | disposition home or self-care (01) ==
LOC: ANHLAB 12:31
PROVIDERS: PCP Nurse Practitioner Family; Visit Provider Nurse Practitioner Family
DX: Z51.81 Encounter for therapeutic drug level monitoring (principal); Z79.01 Long term (current) use of anticoagulants
CPT/HCPCS: 36415; 85610

== ENCOUNTER 2025-07-10 10:24 | Outpatient (CLI) | payer MEDICARE, SELFPAY ==
--- OUTSIDE RECORDS SUMMARY | 2019-12-16 19:00 | XMS_ITS | Continuity of Care Document ---
Author Organization [facility] Address [address] [place] [address] Care Team Providers Care Lab Engineer Name Role Phone Amy Solomon MD Unavailable Unavailable Procedures Procedure Date Ecg-routine 12 Lead; Intrpt & 0 Calcium Scoring, Pro Advance Directives Directive Yes / No Effective Date File Name No Information Encounters Encounter Description Practice Location Reason(s) For Visit Diagnoses Date Provider Providers Copied on Encounter [facility], [address] [place] [address], [address], [facility] No Information 0 Juanito Reyes. [address] [place] [address], [facility] [address], [place], [address], [place]. tel:[phone] Referring Provider: Chaz Sigala, [address] [place] [address] [address], [place], [address]. tel:[phone] 9581 [facility], [address] [place] [address], [address], [place] [facility] No Information 0-201 6 Marie Wilder. [address] [facility], [address], [address], [place]. tel:[phone] Referring Provider: Meño Welch, [address] [facility] [address], [place], [address]. tel:[phone] Family History Family Member Type Diagnosis Age At Onset No Information Payers Payer name Insurance type Covered democrat ID Authoriza tion(s) Hum[employer] Gold Plus O CI [id number] Social History Type Description Quantity Date Captured Comments Sex Male Smoking Status No Information Chief Complaint And Reason For Visit No Information Reason For Referral Reason For Referral No Information History Of Present Illness Encounter Date Complaint History Of Prese nt Illness No Information Functional Status Date Functional Assessmen t No Information Instructions Date Instruction Additional Infor mation No Information Assessments Type Assessment Date No Information Patient Care Teams Name Effective Dates (start - stop) Status Members No Information
--- OUTSIDE RECORDS SUMMARY | 2022-03-20 07:40 | XMS_ITS | Continuity of Care Document ---
Author Organization [facility] Address [address] [place] [address] Phone Care Team Providers Care Financial Quantitative Analyst Name Role Phone Mely RM, Adrian Unavailable Unavailable Allergies, Adverse Reactions, Alerts Substance Reaction Status Criticality ciprofloxacin Hives Active High Medications Medication Instructions Dosage Effective Dates (start - stop) Status Comments cholecalciferol (vitamin D3) 1,000 unit capsule take 3 by Oral route everyday 3 - Active finasteride 5 mg tablet take 1 tablet by oral route every day 5 MG - Active Flonase Allergy Relief 50 mcg/actuation nasal spray,suspension inhale 2 spray by intranasal route every day in each nostril 100 MCG - Active sildenafil 100 mg tablet take 1 tablet by oral route every day as needed approximately 1 hour before sexual activity 100 MG - Active aspirin 325 mg tablet take 1 tablet by o ral route every day 325 MG - Active ferrous sulfate 325 mg (65 mg iron) tablet take 1 tablet by ORAL route 2 times every day 325 MG - Active Procedures Procedure Date Office/outpatient Visit, Est Telehealth Office/outpatient Visit, Est Office/outpatient Visit, Est Office Consultation Results Test Name Date and Time Measure Units Reference Range Abnormal Flag Status Comments Panel Description: U MAB Final Ur Microalbumin MG/DL 12:49:09 <0.7 mg/dL Final PERFORMED BY:[employer],[address] [place] [address] Ur Creatinine 12:49:09 37.0 mg/dL 16.0-241.0 Final PERFORMED BY:[employer] [facility] [facility] [place] [address] Ur Microalb/Creat Ratio 12:49:09 see below mg/g <30.0 Final Unable to calculate value due to result being outsideanalyzer's reporting limit.The [place] [employer] defines increased urinealbumin excretion as follows:Category Spot Collection Microalbumin/Crea tinine Ratio (mg/g)Normal < 30Moderately increased 30-299Clinical albuminuria >/= 300Because of variability in urinary albumin excretion,ADA recommendations specify that 2-3 specimens, collectedwithin a 3-6 month period, should exhibit abnormality priorto diagnostic consideration.PER FORMED BY:[employer] [facility] [facility] [place] [address] L EGEND: L=Low LL=Very Low H=High HH=Very High A=Abnormal AA=Very Abnormal Advance Directives Directive Yes / No Effective Date File Name No Information Encounters Encounter Description Practice Location Reason(s) For Visit Diagnoses Date Provider Providers Copied on Encounter [facility], [address] [place] [address], [address], tel:[phone] No Information 2 Mely Campbell. [address] [facility], [address], [place], [place], [id number] , [place]. tel:[phone] Office/outpat ient Visit, Est [facility], [address], [address], tel:[phone] [facility] Chronic Kidney Disease (chief complaint) Elevated blood-pressure reading, without diagnosis of hypertensionVitami n D deficiency, unspecifiedChronic kidney disease, stage 3a 1 Mely Campbell. [address] [facility], [address], [place], [place], [id number] , [place]. tel:[phone] Specialist : Anthony Rehman, [address] [facility] [address], [place], [address]. tel:[phone] cialist: Khanh Mendoza, [address] [place] [address] [address], [place], [address]. tel:[phone] erring Provider: Ana Maria Coronado, [address] [place] [address] [address], [place], [address]. tel:[phone] Telehealth Office/outpat ient Visit, Est [facility], [address] [place] [address], [address], tel:[phone] [facility] Chronic Kidney Disease (chief complaint) Chronic kidney disease, stage 3 (moderate)Elevated blood-pressure reading, without diagnosis of hypertensionVitami n D deficiency, unspecified 0 Mely Campbell. [address] [place] [address], [address], [place], [id number] , . tel:[phone] Specialist : Anthony Rehman, [address] [place] [address] [place] [address], [address]. tel:[phone] cialist: Khanh Mendoza, [address] [place] [address] [place] [address], [address]. tel:[phone] erring Provider: Ana Maria Coronado, [address] [place] [address] [address], [place], [address]. tel:[phone] [facility], [address] [place] [address], [address], tel:[phone] [facility] Chronic kidney disease, stage 3 (moderate)Hematuri a, unspecifiedElevate d blood-pressure reading, without diagnosis of hypertensionVitami n D deficiency, unspecified 9 Mely Campbell. [address] [place] [address], [address], [place], [id number] , . tel:[phone] Referring Provider: Ana Maria Coronado, [address] [place] [address] [address], [place], [address]. tel:[phone] Office/outpat ient Visit, Est [facility], [address] [place] [address], [address], tel:[phone] [facility] Chronic Kidney Disease (chief complaint) Chronic kidney disease, stage 3 (moderate)Hematuri a, unspecifiedElevate d blood-pressure reading, without diagnosis of hypertensionVitami n D deficiency, unspecified 9 Mely Campbell. [address] [place] [address], [address], [place], [id number] , [place]. tel:[phone] Referring Provider: Ana Maria Coronado, [address] [place] [address] [address], [place], [address]. tel:[phone] Office Consultation [facility], [address], [address], tel:[phone] [facility] Chronic Kidney Disease (chief complaint) Chronic kidney disease, stage 3 (moderate)Hematuri a, unspecifiedElevate d blood-pressure reading, without diagnosis of hypertension 9 Mely Campbell. [address] [place] [address], [address], [place], [place], [id number] , [place]. tel:[phone] Specialist : Anthony Rehman, [address] [place] [address] [address], [place], [address]. tel:[phone] cialist: Khanh Mendoza, [address] [place] [address] [address], [place], [address]. tel:[phone] erring Provider: Ana Maria Coronado, [address] [place] [address] [address], [place], [address]. tel:[phone] [facility], [address], [address], tel:[phone] [facility] [place] No Information 9 Mely Campbell. [facility], [address], [place], [place], [address] , . tel:[phone] Specialist : Anthony Rehman, [address] [facility] [address], [place], [address]. tel:[phone] cialist: Khanh Mendoza, [address] [place] [address] [address], [place], [address]. tel:[phone] erring Provider: Ana Maria Coronado, [address] [place] [address] [address], [place], [address]. tel:[phone] Family History Family Member Type Diagnosis Age At Onset Problem (finding) Family history of Diabe raciel mellitus Problem (finding) Family history of coronary arteriosclerosis Problem (finding) Family history of Strok e Immunizations Vaccine Date Status Comments Influenza, seasonal, injectable administe red Source: Source Unspecified Payers Payer name Insurance type Covered alliance party ID Authoriza tion(s) Hum[employer] Choice PPO CI [id number] Social History Type Description Quantity Date Captured Comments Sex Male Smoking Status No Information Chief Complaint And Reason For Visit No Information History Of Present Illness Encounter Date Complaint History Of Stephany galan Illness Chronic Kidney Disease The rebekah galan's CKD is currently stable. Relevant disease context/risk factors include: age over 60 and male gender. Currently, the patient has no associated symptoms. Chronic Kidney Disease The rebekah galan's CKD is currently stable. Relevant disease context/risk factors include: age over 60 and male gender. Currently, the patient has no associated symptoms. Pertinent negatives include a lack of the following symptoms: dysuria, dyspnea, fatigue, hematuria, nausea, pruritus, rash, urinary frequency, vomiting and weight loss. Chronic Kidney Disease The rebekah galan's CKD is currently stable. Relevant disease context/risk factors include: age over 60 and male gender. Currently, the patient has no associated symptoms. Pertinent negatives include a lack of the following symptoms: dysuria, dyspnea, fatigue, hematuria, nausea, pruritus, rash, urinary frequency, vomiting and weight loss. Chronic Kidney Disease The rebekah galan's CKD is currently a new diagnosis. Relevant disease context/risk factors include: age over 60 and male gender. Currently, the patient has no associated symptoms. Pertinent negatives include a lack of the following symptoms: dysuria, dyspnea, fatigue, hematuria, nausea, pruritus, rash, urinary frequency, vomiting and weight loss. Instructions Date Instruction Additional Infor mation No Information Assessments Type Assessment Date No Information
--- OUTSIDE RECORDS SUMMARY | 2025-07-10 11:17 | XMS_ITS | Clinical Summary ---
Author Organization [facility] Address [address] [place] [address] Care Team Providers Care Headmaster/Mistress Name Role Phone Mark Xavier MD Primary Care Provider [phone] Source Comments [facility],non-owned Affiliates and Associated Physician Practices is amultiple site organization consisting of ambulatory clinics and hospital sitesin [place], [place]. This disclosure is being madepursuant to the Care Everywhere program and may not contain all information available regarding this patient. 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
--- OUTSIDE RECORDS SUMMARY | 2025-07-10 11:17 | XMS_ITS | Clinical Summary ---
Author Organization [facility] Address [address] [place] [phone] Phone Care Team Providers Care Homicide Squad Commanding Officer Name Role Phone Unavailable Primary Care Provider Unavailabl e Medications omega-3 (FISH OIL) 1000 MG capsule 1 tab/cap bid 05/02/2012 Activ e pantoprazole (PROTONIX) 40 MG EC tablet 1 tab/cap qday 05/02/2012 Active aspirin (ST SIHTAL) 81 MG EC tablet 1 tab/cap qday [...]
[2025-07-10 11:27] LABS: Add Urine Microscopic? YES; Appearance Urine Clear (Clear); Glucose Urine UA Negative (Negative); Leukocyte Esterase Ur Negative LEU/UL (Negative); Nitrate Urine Negative (Negative); Specific Grav Ur 1.025 (1.001-1.035)
[2025-07-10 11:38] LABS: Hematocrit 39.7 % (42.0-52.0); Hemoglobin 12.9 g/dL (14.0-18.0); Mean Corpuscular HGB Conc 32.5 g/dl (32-36); Mean Corpuscular Hemoglobin 29.7 pg (26-34); Mean Corpuscular Volume 91.3 fl (80-100); Platelet Count Result 278 k/mm3 (150-375); Red Blood Count 4.35 M/mm3 (4.6-6.20); White Blood Count 6.9 K/mm3 (4.5-10.0)
[2025-07-10 11:55] LABS: Total Protein Urine Random 7 mg/dL; Ur Ttl Prot Creatinine Ratio 0.02 mg/mg (0-0.20)
[2025-07-10 11:55] LABS: Hemoglobin A1C 5.2 % (<5.7)
[2025-07-10 11:57] LABS: Magnesium 2.2 mg/dL (1.6-2.3)
[2025-07-10 11:58] LABS: Albumin Level 4.2 g/dL (3.5-5.1); Anion Gap 8 mmol/L (4-12); Blood Urea Nitrogen 19 mg/dL (9-20); Calcium 8.8 mg/dL (8.4-10.2); Carbon Dioxide 26 mmol/L (22-30); Chloride 104 mmol/L (98-107); Estimated Glomerular Filt Rate 41; Glucose 90 mg/dL (65-110); Potassium 3.4 mmol/L (3.4-5.0); Sodium 138 mmol/L (137-145)
[2025-07-10 12:07] LABS: Alanine Aminotransferase 16 U/L (6-50); Aspartate Amino Transferase 35 U/L (17-59)
[2025-07-10 13:11] LABS: Vitamin B12 > 1000.0 pg/mL (239-931)
== END 2025-07-10 10:25 | disposition home or self-care (01) ==
PROVIDERS: PCP Nurse Practitioner Family; Referring Provider Podiatrist Foot & Ankle Surgery; Visit Provider Internal Medicine Nephrology
DX: B35.1 Tinea unguium (principal); R10.31 Right lower quadrant pain; I12.9 Hypertensive chronic kidney disease with stage 1 through stage 4 chronic kidney disease, or unspecified chronic kidney disease; N18.32 Chronic kidney disease, stage 3b; Z13.1 Encounter for screening for diabetes mellitus; Z11.59 Encounter for screening for other viral diseases; N28.1 Cyst of kidney, acquired; N20.0 Calculus of kidney; E83.42 Hypomagnesemia; R79.89 Other specified abnormal findings of blood chemistry; N52.9 Male erectile dysfunction, unspecified; Z68.38 Body mass index [BMI] 38.0-38.9, adult; S81.802A Unspecified open wound, left lower leg, initial encounter; X58.XXXA Exposure to other specified factors, initial encounter; K57.90 Diverticulosis of intestine, part unspecified, without perforation or abscess without bleeding; M47.816 Spondylosis without myelopathy or radiculopathy, lumbar region; M10.9 Gout, unspecified; G47.33 Obstructive sleep apnea (adult) (pediatric); M17.12 Unilateral primary osteoarthritis, left knee; F51.01 Primary insomnia; E78.2 Mixed hyperlipidemia; J32.9 Chronic sinusitis, unspecified; I89.0 Lymphedema, not elsewhere classified; I82.409 Acute embolism and thrombosis of unspecified deep veins of unspecified lower extremity; Z79.899 Other long term (current) drug therapy
CPT/HCPCS: 36415; 80069; 81001; 82570; 82607; 82746; 83036; 83735; 84156; 84450; 84460; 85027; 86803; 87086

== ENCOUNTER 2025-10-03 00:15 | Day surgery (SDC) | payer MEDICARE, SELFPAY ==
[2025-09-26 15:12] VITALS: BMI 37.3
--- NOTE | 2025-09-26 15:29 | PC.NURSE ---
Spoke with PATIENT regarding medication WARFARIN. PATIENT verbalizes understanding that the last dose is to be taken on 09/28/2025 and the Endoscopist will instruct them when to restart after the procedure.
--- OUTSIDE RECORDS SUMMARY | 2025-10-03 00:18 | XMS_ITS | Clinical Summary ---
Author Organization [facility] Address [address] [place] [address] Care Team Providers Care Plant Associate Name Role Phone Mark Xavier MD Primary Care Provider [phone] Source Comments [facility],non-owned Affiliates and Associated Physician Practices is amultiple site organization consisting of ambulatory clinics and hospital sitesin [place], [place], [place] and [place]. This disclosure is being madepursuant to the Care Everywhere program and may not contain all information available regarding this patient. 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
[2025-10-03 09:38] VITALS: BP 164/79; PULSE 72; RESP 16; TEMP 36.6; O2SAT 100
--- NOTE | 2025-10-03 09:56 | WPDANESEPPF ---
Anes - Initial Pre Proc Eval Procedure: Operation Date: 10/03/25 11:00 Proposed Procedures p Diagnostic Colonoscopy - Calixto Acosta MD Date/Time: 10/03/25 09:56 Surgeon: Calixto Acosta MD Pre Op Diagnosis: Anemia, unspecified Patient Data Age: 74 Gender: M Height: 1.83 m Weight: 122.4 kg Last Vital Signs Temp 36.6 C 10/03/25 09:38 Pulse 72 10/03/25 09:38 Resp 16 10/03/25 09:38 BP 164/79 H 10/03/25 09:38 Pulse Ox 100 10/03/25 09:38 O2 Del Method Room Air 10/03/25 09:38 Allergies Allergy/AdvReac Type Severity Reaction Status Date / Time No Known Allergies Allergy Unknown Verified 10/03/25 09:34 Home Medications ?Medication ?Instructions ?Recorded ?Confirmed ?Type aspirin 81 mg tablet,delayed 81 mg PO DAILY 08/10/19 10/03/25 History release (Adult Low Dose Aspirin) folic acid 800 mcg tablet 0.8 mg PO DAILY 08/10/19 10/03/25 History omega 7-eza-zmu-fish oil 1,000 mg 1 cap PO BID 08/10/19 10/03/25 History (120 mg-180 mg) capsule (Fish Oil) ascorbate calcium (vitamin C) 500 500 mg PO DAILY 12/10/21 10/03/25 History mg tablet fluticasone propionate 50 1 spray intranasal DAILY 10/27/23 09/26/25 History mcg/actuation nasal spray,suspension multivitamin 1 tablet PO DAILY 10/27/23 10/03/25 History vitamin E 1 cap PO DAILY 10/27/23 10/03/25 History hydrocodone 5 mg-acetaminophen 325 1 tablet PO Q8H PRN pain 08/01/24 09/26/25 History mg tablet diazepam 5 mg tablet 5 mg PO DAILY PRN anxiety 02/06/25 09/26/25 History azelastine 137 mcg (0.1 %) nasal See Rx Instructions .Route 03/13/25 09/26/25 Rx spray .COMPLEX #30 mL atorvastatin 20 mg tablet See Rx Instructions .Route 06/08/25 10/03/25 Rx .COMPLEX #90 tabs furosemide 80 mg tablet 80 mg PO DAILY #90 tabs 06/14/25 10/03/25 Rx eszopiclone 3 mg tablet (Lunesta) 3 mg PO QHS #30 tabs 07/20/25 09/26/25 Rx boron aspartate 3 mg (as mg PO 08/08/25 08/08/25 History aspartate) capsule bupropion HCl 150 mg 24 hr tablet, 150 mg PO QAM #90 tabs 08/08/25 10/03/25 Rx extended release (Wellbutrin XL) warfarin 2.5 mg tablet 2.5 mg PO DAILY 08/08/25 10/03/25 History febuxostat 40 mg tablet See Rx Instructions .Route 08/17/25 10/03/25 Rx .COMPLEX #90 tabs pantoprazole 40 mg tablet,delayed See Rx Instructions .Route 08/20/25 10/03/25 Rx release .COMPLEX #90 ea topiramate 25 mg tablet See Rx Instructions .Route 08/20/25 10/03/25 Rx .COMPLEX #90 tabs sulfamethoxazole 800 See Rx Instructions .Route 09/03/25 10/03/25 Rx mg-trimethoprim 160 mg tablet .COMPLEX #90 tabs warfarin 5 mg tablet See Rx Instructions .Route 09/03/25 10/03/25 Rx .COMPLEX #90 tabs potassium chloride 10 mEq See Rx Instructions .Route 09/21/25 10/03/25 Rx capsule,extended release .COMPLEX #90 caps boron aspartate 2 tablet PO DAILY 09/26/25 10/03/25 History ferrous sulfate 325 mg (65 mg 325 mg PO DAILY 09/26/25 10/03/25 History iron) tablet (Iron (ferrous sulfate)) mecobalamin (vitamin B12) 1,000 1,000 mcg PO DAILY 09/26/25 10/03/25 History mcg chewable tablet terbinafine HCl 250 mg tablet 250 mg PO DAILY 09/26/25 10/03/25 History Patient hx anesthesia problems: none Family hx anesthesia problems: none Results Review: All pre-operative results and documents have been reviewed as part of the pre-operative evaluation. [facility] Past Medical History Medical History Gastroesophageal reflux disease BMI 38.0-38.9,adult Lumbar stenosis with neurogenic claudication Morbidly obese Lumbar stenosis without neurogenic claudication Stage 3b chronic kidney disease Former smoker Obstructive sleep apnea (~2002) Fatigue Chronic sinusitis Anemia Essential (primary) hypertension Gout without tophus Mixed hyperlipidemia CASIMIRO on CPAP Primary insomnia Primary osteoarthritis of left knee History of DVT of lower extremity Surgical History Surgical History History of surgery on arm severed R lower arm tendon, surgery flipped arm tendon to hand S/P cervical spinal fusion C5-C6 in 1999 History of appendectomy Family History Family History Sibling Family history of diabetes mellitus in first degree relative Diabetes mellitus Hodgkins lymphoma Mother Asthma Family history of diabetes mellitus in first degree relative Diabetes mellitus Pernicious anemia Father Malignant neoplasm of prostate Other Family history of arthritis Family history of malignant neoplasm Hypertension Social History Social History Social History: Smoked for 40 years, 1.5ppd = 60 pack years Albin is somewhat confident filling out medical forms. In the last 12 months he has not received assistance from an organization or program. Smoking packs per day: 1.5 Smoking cigarettes per day: 30.0 Years smoked: 40 Smoking pack-years: 60.00 Smoking status: Former smoker Tobacco type: cigarettes Second hand tobacco smoke exposure: Yes Alcohol intake: current Drinks per week: 1 Alcohol use details: 2 BEERS/MONTH Substance use: current Substance use type: marijuana Other substance usage details: MED CARD 3 HITS/DAY Last use: HAS NOT BEEN USING Lack of Transportation: No Lack of Food: Never True Current Housing: I Have Housing Concerned About Future Housing: No Difficulty Paying Gas/Electric Bills: No Difficulty Paying for Meds: No Currently Unemployed: YES Education: Associate Degree Difficulty w/ Childcare or Family Care: No Living arrangements: with family Occupation/Education: 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 Informed Consent: The patient's anesthetic plan and its attendant risks and benefits were discussed with the patient/family/POA. Questions were solicited and answers provided to the satisfaction of the patient/family/POA.
[2025-10-03] MEDS: LACTATED RINGERS 1,000 ML 150 ML IV CONT (10:03)
--- NOTE | 2025-10-03 11:11 | PM.HPGS ---
History of Present Illness History of Present Illness Consent: Risks, benefits, and alternatives have been discussed and questions answered. Patient agrees to proceed with procedure. Chief complaint: Anemia, unspecified Narrative: Albin Nolan is a 74 year old male here for colonoscopy, last one 8 years ago, denies gib Review of Systems Review of Systems: All systems reviewed & are unremarkable except as noted in HPI and below PMFSH Past Medical History Medical History Gastroesophageal reflux disease BMI 38.0-38.9,adult Lumbar stenosis with neurogenic claudication Morbidly obese Lumbar stenosis without neurogenic claudication Stage 3b chronic kidney disease Former smoker Obstructive sleep apnea (~2002) Fatigue Chronic sinusitis Anemia Essential (primary) hypertension Gout without tophus Mixed hyperlipidemia CASIMIRO on CPAP Primary insomnia Primary osteoarthritis of left knee History of DVT of lower extremity Surgical History Surgical History History of surgery on arm severed R lower arm tendon, surgery flipped arm tendon to hand S/P cervical spinal fusion C5-C6 in 1999 History of appendectomy Family History Family History Sibling Family history of diabetes mellitus in first degree relative Diabetes mellitus Hodgkins lymphoma Mother Asthma Family history of diabetes mellitus in first degree relative Diabetes mellitus Pernicious anemia Father Malignant neoplasm of prostate Other Family history of arthritis Family history of malignant neoplasm Hypertension Social History Social History Social History: Smoked for 40 years, 1.5ppd = 60 pack years Albin is somewhat confident filling out medical forms. In the last 12 months he has not received assistance from an organization or program. Smoking packs per day: 1.5 Smoking cigarettes per day: 30.0 Years smoked: 40 Smoking pack-years: 60.00 Smoking status: Former smoker Tobacco type: cigarettes Second hand tobacco smoke exposure: Yes Alcohol intake: current Drinks per week: 1 Alcohol use details: 2 BEERS/MONTH Substance use: current Substance use type: marijuana Other substance usage details: MED CARD 3 HITS/DAY Last use: HAS NOT BEEN USING Lack of Transportation: No Lack of Food: Never True Current Housing: I Have Housing Concerned About Future Housing: No Difficulty Paying Gas/Electric Bills: No Difficulty Paying for Meds: No Currently Unemployed: YES Education: Associate Degree Difficulty w/ Childcare or Family Care: No Living arrangements: with family Occupation/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: 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 Gender identity (if verbalized by the patient): Male Spiritual care concerns: No Meds Home Medications and Allergies Home Medications ?Medication ?Instructions ?Recorded ?Confirmed ?Type aspirin 81 mg tablet,delayed 81 mg PO DAILY 08/10/19 10/03/25 History release (Adult Low Dose Aspirin) folic acid 800 mcg tablet 0.8 mg PO DAILY 08/10/19 10/03/25 History omega 4-lcc-pjz-fish oil 1,000 mg 1 cap PO BID 08/10/19 10/03/25 History (120 mg-180 mg) capsule (Fish Oil) ascorbate calcium (vitamin C) 500 500 mg PO DAILY 12/10/21 10/03/25 History mg tablet fluticasone propionate 50 1 spray intranasal DAILY 10/27/23 09/26/25 History mcg/actuation nasal spray,suspension multivitamin 1 tablet PO DAILY 10/27/23 10/03/25 History vitamin E 1 cap PO DAILY 10/27/23 10/03/25 History hydrocodone 5 mg-acetaminophen 325 1 tablet PO Q8H PRN pain 08/01/24 09/26/25 History mg tablet diazepam 5 mg tablet 5 mg PO DAILY PRN anxiety 02/06/25 09/26/25 History azelastine 137 mcg (0.1 %) nasal See Rx Instructions .Route 03/13/25 09/26/25 Rx spray .COMPLEX #30 mL atorvastatin 20 mg tablet See Rx Instructions .Route 06/08/25 10/03/25 Rx .COMPLEX #90 tabs furosemide 80 mg tablet 80 mg PO DAILY #90 tabs 06/14/25 10/03/25 Rx eszopiclone 3 mg tablet (Lunesta) 3 mg PO QHS #30 tabs 07/20/25 09/26/25 Rx boron aspartate 3 mg (as mg PO 08/08/25 08/08/25 History aspartate) capsule bupropion HCl 150 mg 24 hr tablet, 150 mg PO QAM #90 tabs 08/08/25 10/03/25 Rx extended release (Wellbutrin XL) warfarin 2.5 mg tablet 2.5 mg PO DAILY 08/08/25 10/03/25 History febuxostat 40 mg tablet See Rx Instructions .Route 08/17/25 10/03/25 Rx .COMPLEX #90 tabs pantoprazole 40 mg tablet,delayed See Rx Instructions .Route 08/20/25 10/03/25 Rx release .COMPLEX #90 ea topiramate 25 mg tablet See Rx Instructions .Route 08/20/25 10/03/25 Rx .COMPLEX #90 tabs sulfamethoxazole 800 See Rx Instructions .Route 09/03/25 10/03/25 Rx mg-trimethoprim 160 mg tablet .COMPLEX #90 tabs warfarin 5 mg tablet See Rx Instructions .Route 09/03/25 10/03/25 Rx .COMPLEX #90 tabs potassium chloride 10 mEq See Rx Instructions .Route 09/21/25 10/03/25 Rx capsule,extended release .COMPLEX #90 caps boron aspartate 2 tablet PO DAILY 09/26/25 10/03/25 History ferrous sulfate 325 mg (65 mg 325 mg PO DAILY 09/26/25 10/03/25 History iron) tablet (Iron (ferrous sulfate)) mecobalamin (vitamin B12) 1,000 1,000 mcg PO DAILY 09/26/25 10/03/25 History mcg chewable tablet terbinafine HCl 250 mg tablet 250 mg PO DAILY 09/26/25 10/03/25 History Allergies Allergy/AdvReac Type Severity Reaction Status Date / Time No Known Allergies Allergy Unknown Verified 10/03/25 09:34 Vital Signs Vital Signs - 24 hr 10/03/25 09:38 Temperature 98 F Pulse Rate 72 Respiratory Rate 16 Blood Pressure 164/79 H Pulse Oximetry 100 Oxygen Delivery Room Air Exam Const: General: comfortable and no acute distress HENMT: Face/Nose/Sinus: Normal nares present Eyes: General: appearance normal, both eyes and all related structures Neck: Neck: no JVD Resp: Auscultation: clear to auscultation bilaterally Cardio: Rate: regular rate Rhythm: regular rhythm GI: Inspection: non-distended GI Palp: Yes Soft to palpation Skin: General skin exam: normal color Assessment and Plan Assessment and plan (1) Anemia: Qualifiers: Anemia type: unspecified type Qualified Code(s): D64.9 - Anemia, unspecified Code(s): D64.9 - Anemia, unspecified Status: Acute Assessment and Plan: colonoscopy
--- NOTE | 2025-10-03 11:22 | S_PTH ---
PATIENT: Albin Nolan LOC: [facility]#:[id number] AGE/SX: 74/M ROOM: RE10/03/[address]: Calixto Acosta MD : 1950 BED: DIS: 10/03/2025 SPEC #: [id number] RECD: 10/03/25 12:50 STATUS: MI RETom #: [id number] ADRIENNE: 10/03/25 11:[address]: Calixto Acosta DEPT: [facility] Surgical RECD BY: Kati Paulson ENTERED: 10/03/25 12:50 SP TYPE: Surgical OTHR DR: Cassandra Hanks APRN Tissues: A - Colon Polypectomy Procedures: Hematoxylin and Eosin Stain Gross and Microscopic Level 4
[2025-10-03 11:24] VITALS: BP 127/68; PULSE 62; RESP 20; O2SAT 100
[2025-10-03 11:34] VITALS: BP 137/78; PULSE 58; RESP 18; O2SAT 100
[2025-10-03 11:44] VITALS: BP 138/81; PULSE 62; RESP 18; O2SAT 99
== END 2025-10-03 11:57 | disposition home or self-care (01) ==
PROVIDERS: PCP Nurse Practitioner Family; Referring Provider Nurse Practitioner Family; Visit Provider Internal Medicine Gastroenterology
PROC: 0DJD8ZZ Inspection of Lower Intestinal Tract, Via Natural or Artificial Opening Endoscopic (ICD-10-PCS; CPT 45378; principal; 2025-10-03 11:00)
DX: D64.9 Anemia, unspecified (principal); D12.3 Benign neoplasm of transverse colon; K57.30 Diverticulosis of large intestine without perforation or abscess without bleeding; K64.8 Other hemorrhoids; K21.9 Gastro-esophageal reflux disease without esophagitis; N18.32 Chronic kidney disease, stage 3b; I12.9 Hypertensive chronic kidney disease with stage 1 through stage 4 chronic kidney disease, or unspecified chronic kidney disease; E78.2 Mixed hyperlipidemia; G47.33 Obstructive sleep apnea (adult) (pediatric); Z99.89 Dependence on other enabling machines and devices; Z86.718 Personal history of other venous thrombosis and embolism; Z87.891 Personal history of nicotine dependence; Z79.01 Long term (current) use of anticoagulants
CPT/HCPCS: 45385; 88305; J2704; J7120